=== PATIENT | female | born 1970 | race Caucasian/White ===

== ENCOUNTER 2016-12-30 15:50 | Observation (INO) | payer MEDICARE ==
[2016-12-30] MEDS ORDERED: SODIUM CHLORIDE 0.9% 1,000 ML IV STA (16:14)
--- NOTE | 2016-12-30 16:22 | ED ---
General Adult HPI - General Chief complaint: Arrhythmia/Palpitations Stated complaint: Palpatations/SOB Time Seen by Provider: 12/30/16 16:00 Source: patient, RN notes reviewed, old records reviewed Mode of arrival: wheelchair Limitations: no limitations - History of Present Illness Initial comments: This is a 46-year-old female ER for evaluation today. Patient's is coming in for chest pain or palpitations. Patient does have history of high blood pressure. Denies history of anxiety. Denies fever cough or congestion, denies any other problems. He states symptoms started yesterday but of increased him in consistent throughout the day. No radiation or shortness of breath. No prior history of similar symptoms, no modifying factors for symptoms at home including taking her pain medications. Patient's over the guitars being valvular chest - Related Data Home Medications Medication Instructions Recorded Confirmed Divalproex [Depakote] 250 mg PO Q12H 05/02/16 12/30/16 Levothyroxine Sodium [Synthroid] 50 mcg PO DAILY 05/02/16 12/30/16 Metoprolol Tartrate [Lopressor] 50 mg PO BID 05/02/16 12/30/16 Omeprazole 20 mg PO BID 05/02/16 12/30/16 Pramipexole [Mirapex] 1 mg PO BID 05/02/16 12/30/16 Torsemide 10 mg PO BID 05/02/16 12/30/16 traMADol HCl [Ultram] 50 mg PO DAILY PRN 08/05/16 12/30/16 Albuterol Sulfate [Proair 2 puff INHALATION RT-Q4H PRN 10/10/16 12/30/16 Respiclick] traZODone HCL [Desyrel] 150 mg PO HS 10/10/16 12/30/16 Albuterol Nebulized [Ventolin 2.5 mg INHALATION RT-Q6H PRN 12/30/16 12/30/16 Nebulized] Aspirin EC [Ecotrin Low Dose] 81 mg PO DAILY 12/30/16 12/30/16 Cyanocobalamin (Vitamin B-12) 3,000 mcg PO DAILY 12/30/16 12/30/16 [Vitamin B-12] Etodolac [Lodine] 400 mg PO BID 12/30/16 12/30/16 FLUoxetine HCL [PROzac] 40 mg PO DAILY 12/30/16 12/30/16 Gabapentin [Neurontin] 1,200 mg PO TID 12/30/16 12/30/16 Solifenacin Succinate [Vesicare] 5 mg PO DAILY 12/30/16 12/30/16 Allergies Allergy/AdvReac Type Severity Reaction Status Date / Time Penicillins Allergy Swelling Verified 10/10/16 18:14 adhesive tape AdvReac Severe Peels Skin Verified 10/10/16 18:14 prochlorperazine AdvReac Agitation Verified 10/10/16 18:14 [From Compazine] prochlorperazine edisylate AdvReac Agitation Verified 10/10/16 18:14 [From Compazine] prochlorperazine maleate AdvReac Agitation Verified 10/10/16 18:14 [From Compazine] Review of Systems ROS Statement: Those systems with pertinent positive or pertinent negative responses have been documented in the HPI. ROS Other: All systems not noted in ROS Statement are negative. Past Medical History Past Medical History: Asthma, Fibromyalgia, GERD/Reflux, Hypertension, Thyroid Disorder Additional Past Medical History / Comment(s): back pain, DDD, restless leg, migraines morbid obesity History of Any Multi-Drug Resistant Organisms: C-DIFF Date of last positivie culture/infection: 2008/C-diff MDRO Source:: stool Past Surgical History: Appendectomy, Bariatric Surgery, Cholecystectomy, Hysterectomy, Tonsillectomy Additional Past Surgical History / Comment(s): LAP-BAND surgery in 2008 with loss of 60 pounds and gained 50 pounds back. Past Psychological History: Anxiety, Depression Smoking Status: Never smoker Past Alcohol Use History: None Reported Additional Past Alcohol Use History / Comment(s): Patient is a lifelong nonsmoker. She denies any medical marijuana, marijuana, street drug use. She states she drinks alcohol rarely. She is on disability due to pseudotumor cerebri and fibromyalgia. She states she uses a cane but also has a walker available. She does not have a CPAP, oxygen or nebulizer. Past Drug Use History: None Reported - Past Family History Mother Additional Family Medical History / Comment(s): Mother is alive at age 66 with history of myocardial infarction 2, hypertension, hyperlipidemia, degenerative disc disease, Arlene's, anxiety and depression. Mother and maternal grandmother have history of TIA. Father Additional Family Medical History / Comment(s): Father is alive at age 69 with history of degenerative disc disease, fibromyalgia, hypertension, anxiety and depression. Brother(s) Additional Family Medical History / Comment(s): Patient has 4 brothers and one has fibromyalgia. Sister(s) Additional Family Medical History / Comment(s): Patient has 2 sisters with fibromyalgia. Patient does not have any children. General Exam Limitations: no limitations General appearance: alert, anxious Head exam: Present: atraumatic, normocephalic, normal inspection Eye exam: Present: normal appearance, PERRL, EOMI. Absent: scleral icterus, conjunctival injection, periorbital swelling ENT exam: Present: normal exam, mucous membranes moist Neck exam: Present: normal inspection. Absent: tenderness, meningismus, lymphadenopathy Respiratory exam: Present: normal lung sounds bilaterally. Absent: respiratory distress, wheezes, rales, rhonchi, stridor Cardiovascular Exam: Present: normal rhythm, tachycardia, normal heart sounds. Absent: systolic murmur, diastolic murmur, rubs, gallop, clicks GI/Abdominal exam: Present: soft, normal bowel sounds. Absent: distended, tenderness, guarding, rebound, rigid Extremities exam: Present: normal inspection, full ROM, normal capillary refill. Absent: tenderness, pedal edema, joint swelling, calf tenderness Back exam: Present: normal inspection Neurological exam: Present: alert, oriented X3, CN II-XII intact Psychiatric exam: Present: normal affect, normal mood Skin exam: Present: warm, dry, intact, normal color. Absent: rash Course Vital Signs 12/30/16 12/30/16 16:01 17:28 Temperature 96.8 F L Pulse Rate 109 H 87 Respiratory 18 20 Rate Blood Pressure 171/83 187/74 O2 Sat by Pulse 97 98 Oximetry - Reevaluation(s) Reevaluation #1: 12/30/16 17:57 Patient remains a palpitations and chest pain EKG Findings - EKG Comments: EKG Findings:: EKG shows normal sinus or mastoid, [place] 150, QRS 90, QTC 449 Medical Decision Making - Medical Decision Making 46 female here for evaluation of chest pain. At this point patient's EKG is negative x-ray is normal. Troponin is negative. Patient be admitted for cardiac observation serial troponins anticoagulation and cardiac evaluation, telemetry - Lab Data Result diagrams: 12/30/16 16:49 12/30/16 16:49 Lab Results 12/30/16 12/30/16 12/30/16 Range/Units 16:49 16:49 16:49 WBC 10.0 (3.8-10.6) k/uL RBC 4.23 (3.80-5.40) m/uL Hgb 11.6 (11.4-16.0) gm/dL Hct 36.8 (34.0-46.0) % MCV 87.0 (80.0-100.0) fL MCH 27.5 (25.0-35.0) pg MCHC 31.6 (31.0-37.0) g/dL RDW 14.0 (11.5-15.5) % Plt Count 224 (150-450) k/uL Neutrophils % 70 % Lymphocytes % 20 % Monocytes % 6 % Eosinophils % 2 % Basophils % 1 % Neutrophils # 7.1 (1.3-7.7) k/uL Lymphocytes # 2.0 (1.0-4.8) k/uL Monocytes # 0.6 (0-1.0) k/uL Eosinophils # 0.2 (0-0.7) k/uL Basophils # 0.1 (0-0.2) k/uL PT (9.0-12.0) sec INR (<1.1) APTT (22.0-30.0) sec Sodium 140 (137-145) mmol/L Potassium 4.5 (3.5-5.1) mmol/L Chloride 101 (98-107) mmol/L Carbon Dioxide 29 (22-30) mmol/L Anion Gap 10 mmol/L BUN 15 (7-17) mg/dL Creatinine 0.58 (0.52-1.04) mg/dL Est GFR (MDRD) Af Amer >60 (>60 ml/min/1.73 sqM) Est GFR (MDRD) Non-Af >60 (>60 ml/min/1.73 sqM) Glucose 81 (74-99) mg/dL Calcium 9.3 (8.4-10.2) mg/dL Phosphorus 3.7 (2.5-4.5) mg/dL Magnesium 2.0 (1.6-2.3) mg/dL Total Bilirubin 1.1 (0.2-1.3) mg/dL AST 25 (14-36) U/L ALT 17 (9-52) U/L Alkaline Phosphatase 106 (38-126) U/L Total Creatine Kinase 36 (30-135) U/L CK-MB (CK-2) <0.2 (0.0-2.4) ng/mL CK-MB (CK-2) Rel Index Troponin I <0.012 (0.000-0.034) ng/mL Total Protein 7.2 (6.3-8.2) g/dL Albumin 3.6 (3.5-5.0) g/dL 12/30/16 Range/Units 16:49 WBC (3.8-10.6) k/uL RBC (3.80-5.40) m/uL Hgb (11.4-16.0) gm/dL Hct (34.0-46.0) % MCV (80.0-100.0) fL MCH (25.0-35.0) pg MCHC (31.0-37.0) g/dL RDW (11.5-15.5) % Plt Count (150-450) k/uL Neutrophils % % Lymphocytes % % Monocytes % % Eosinophils % % Basophils % % Neutrophils # (1.3-7.7) k/uL Lymphocytes # (1.0-4.8) k/uL Monocytes # (0-1.0) k/uL Eosinophils # (0-0.7) k/uL Basophils # (0-0.2) k/uL PT 10.9 (9.0-12.0) sec INR 1.1 (<1.1) APTT 26.4 (22.0-30.0) sec Sodium (137-145) mmol/L Potassium (3.5-5.1) mmol/L Chloride (98-107) mmol/L Carbon Dioxide (22-30) mmol/L Anion Gap mmol/L BUN (7-17) mg/dL Creatinine (0.52-1.04) mg/dL Est GFR (MDRD) Af Amer (>60 ml/min/1.73 sqM) Est GFR (MDRD) Non-Af (>60 ml/min/1.73 sqM) Glucose (74-99) mg/dL Calcium (8.4-10.2) mg/dL Phosphorus (2.5-4.5) mg/dL Magnesium (1.6-2.3) mg/dL Total Bilirubin (0.2-1.3) mg/dL AST (14-36) U/L ALT (9-52) U/L Alkaline Phosphatase (38-126) U/L Total Creatine Kinase (30-135) U/L CK-MB (CK-2) (0.0-2.4) ng/mL CK-MB (CK-2) Rel Index Troponin I (0.000-0.034) ng/mL Total Protein (6.3-8.2) g/dL Albumin (3.5-5.0) g/dL - Radiology Data Radiology results: report reviewed (Chest x-ray is negative for acute disease), image reviewed Critical Care Time Critical Care Time: Yes Total Critical Care Time: 31 Disposition Clinical Impression: Palpitations, Chest pain Disposition: ADMITTED IP TO THIS [facility] Condition: Undetermined Referrals: Demi Suero MD [Primary Care Provider] - 1-2 days
[2016-12-30 17:12] LABS: Basophils # (A) 0.1 k/uL (0-0.2); Basophils % (A) 1 %; CH 27.5; CHCM 31.7; Eosinophils # (A) 0.2 k/uL (0-0.7); Eosinophils % (A) 2 %; HCT 36.8 % (34.0-46.0); HDW 2.36; HGB 11.6 gm/dL (11.4-16.0); Luc # (Auto) 0.18; Luc % (Auto) 2; Lymphocytes % (A) 20 %; MCH 27.5 pg (25.0-35.0); MCHC 31.6 g/dL (31.0-37.0); Mean Platelet Volume 8.5; Monocytes # (A) 0.6 k/uL (0-1.0); Monocytes % (A) 6 %; Neutrophils # (A) 7.1 k/uL (1.3-7.7); Neutrophils % (A) 70 %; RBC 4.23 m/uL (3.80-5.40); WBC (Perox) 10.82
[2016-12-30 17:14] LABS: INR 1.1 (<1.1); Partial Thromboplastin Time 26.4 sec (22.0-30.0); Prothrombin Time 10.9 sec (9.0-12.0)
[2016-12-30 17:21] LABS: Creatine Kinase 36 U/L (30-135)
[2016-12-30 17:27] LABS: ALT 17 U/L (9-52); AST 25 U/L (14-36); Alkaline Phosphatase 106 U/L (38-126); Anion Gap 10 mmol/L; Blood Urea Nitrogen 15 mg/dL (7-17); Calcium 9.3 mg/dL (8.4-10.2); Carbon Dioxide 29 mmol/L (22-30); Chloride 101 mmol/L (98-107); Glucose 81 mg/dL (74-99); Non-African American GFR(MDRD) >60 (>60 ml/min/1.73 sqM); Phosphorous 3.7 mg/dL (2.5-4.5); Potassium 4.5 mmol/L (3.5-5.1); Sodium 140 mmol/L (137-145); Total Bilirubin 1.1 mg/dL (0.2-1.3); Total Protein 7.2 g/dL (6.3-8.2)
[2016-12-30 17:33] LABS: Creatine Kinase MB <0.2 ng/mL (0.0-2.4); Troponin I <0.012 ng/mL (0.000-0.034)
[2016-12-30] MEDS ORDERED: HEPARIN SODIUM,PORCINE 5,000 UNIT/ML 1 ML VIAL IV ONE (17:55)
[2016-12-30] MEDS ORDERED: NITROGLYCERIN SL TABS 0.4 MG TAB SUBLINGUAL PRN (17:55)
[2016-12-30] MEDS ORDERED: HEPARIN SODIUM,PORCINE 5,000 UNIT/ML 1 ML VIAL IV PRN (17:55)
[2016-12-30] MEDS ORDERED: ASPIRIN 81 MG CHEW PO STA (17:55)
[2016-12-30] MEDS ORDERED: HEPARIN SODIUM,PORCINE/D5W PMX 25,000 UNIT in DEXTROSE/WATER 1 500ML.BAG IV SCH (18:00)
[2016-12-30] MEDS ORDERED: SODIUM CHLORIDE 0.9% 1,000 ML IV SCH (18:00)
--- NOTE | 2016-12-30 18:15 | XR ---
EXAMINATION TYPE: XR chest 2V DATE OF EXAM: 12/30/2016 4:59 PM COMPARISON: Prior chest x-ray 10 October 2016 HISTORY: Weakness, shortness of breath heart palpitations TECHNIQUE: Frontal and lateral views of the chest are obtained. FINDINGS: No interval change. There are overlying cardiac leads. IMPRESSION: No acute cardiopulmonary process.
[2016-12-30] MEDS ORDERED: ALBUTEROL SULFATE INHALATION PRN (20:25)
[2016-12-30] MEDS: NITROGLYCERIN OINT 1 INCH/GM PACKET TOPICAL SCH ×2 (20:30→23:11)
[2016-12-30] MEDS: PRAMIPEXOLE 1 MG TAB PO SCH (21:13)
[2016-12-30] MEDS: GABAPENTIN 400 MG CAP PO SCH (21:13)
[2016-12-30] MEDS: DIVALPROEX 250 MG TABLET.DR PO SCH (21:13)
[2016-12-30] MEDS: traZODone HCL 50 MG TAB PO SCH (21:13)
[2016-12-30] MEDS: METOPROLOL TARTRATE 50 MG TAB PO SCH (21:13)
[2016-12-30] MEDS: CYANOCOBALAMIN 500 MCG TAB PO SCH (21:13)
[2016-12-30] MEDS: traMADol 50 MG TAB PO PRN (21:14)
[2016-12-30] MEDS: ETODOLAC 400 MG TAB PO SCH (21:14)
[2016-12-30] MEDS: FLUoxetine HCL 20 MG CAP PO SCH (21:14)
[2016-12-30] MEDS: PANTOPRAZOLE 40 MG TABLET PO SCH (21:14)
[2016-12-30] MEDS: LEVOTHYROXINE 50 MCG TAB PO SCH (21:15)
[2016-12-30] MEDS: FUROSEMIDE 20 MG TAB PO SCH (21:15)
[2016-12-30] MEDS: OXYBUTYNIN XL 5 MG TAB.ER.24 PO SCH (22:30)
[2016-12-31 00:34] LABS: Creatine Kinase 29 U/L (30-135)
[2016-12-31 00:47] LABS: Creatine Kinase MB <0.2 ng/mL (0.0-2.4); Troponin I <0.012 ng/mL (0.000-0.034)
[2016-12-31] MEDS: NITROGLYCERIN OINT 1 INCH/GM PACKET TOPICAL SCH ×2 (03:45→18:54)
[2016-12-31] MEDS: traMADol 50 MG TAB PO PRN (03:45)
[2016-12-31 04:50] LABS: Mean Platelet Volume 9.2
[2016-12-31 05:01] LABS: Cholesterol 141 mg/dL (<200); HDL Cholesterol 48 mg/dL (40-60); Triglycerides 69 mg/dL (<150)
[2016-12-31 05:02] LABS: Creatine Kinase 26 U/L (30-135)
[2016-12-31 05:15] LABS: Creatine Kinase MB <0.2 ng/mL (0.0-2.4); Troponin I <0.012 ng/mL (0.000-0.034)
--- NOTE | 2016-12-31 08:34 | P.CRDCN ---
History of Present Illness Consult date: 12/31/16 Chief complaint: chest pain History of present illness: This is a pleasant 46-year-old female patient with a past medical history significant for fibromyalgia as well as hypertension presented to the emergency room complaining of chest discomfort. The patient describes atypical chest discomfort. Also she describes painful palpitations. The EKG showed sinus rhythm without any significant ST or T-wave abnormalities. The cardiac enzymes were checked and came in to be unremarkable. She is not aware of any prior history of coronary artery disease. She does smoke ago. I recommended proceeding with a stress testto rule out any severe underlying CAD. Past Medical History Past Medical History: Asthma, Fibromyalgia, GERD/Reflux, Hypertension, Thyroid Disorder Additional Past Medical History / Comment(s): back pain, DDD, restless leg, migraines morbid obesity, pseudotumor cerebri, bladder incontinence History of Any Multi-Drug Resistant Organisms: C-DIFF Date of last positivie culture/infection: 2008/C-diff MDRO Source:: stool Past Surgical History: Appendectomy, Bariatric Surgery, Cholecystectomy, Hysterectomy, Tonsillectomy Additional Past Surgical History / Comment(s): LAP-BAND surgery in 2008 with loss of 60 pounds and gained 50 pounds back. Past Psychological History: Anxiety, Depression Smoking Status: Current some day smoker Past Alcohol Use History: None Reported Additional Past Alcohol Use History / Comment(s): Patient is a lifelong nonsmoker. She denies any medical marijuana, marijuana, street drug use. She states she drinks alcohol rarely. She is on disability due to pseudotumor cerebri and fibromyalgia. She states she uses a cane but also has a walker available. She does not have a CPAP, oxygen or nebulizer. Past Drug Use History: None Reported - Past Family History Mother Additional Family Medical History / Comment(s): Mother is alive at age 66 with history of myocardial infarction 2, hypertension, hyperlipidemia, degenerative disc disease, Arlene's, anxiety and depression. Mother and maternal grandmother have history of TIA. Father Additional Family Medical History / Comment(s): Father is alive at age 69 with history of degenerative disc disease, fibromyalgia, hypertension, anxiety and depression. Brother(s) Additional Family Medical History / Comment(s): Patient has 4 brothers and one has fibromyalgia. Sister(s) Additional Family Medical History / Comment(s): Patient has 2 sisters with fibromyalgia. Patient does not have any children. Medications and Allergies Home Medications Medication Instructions Recorded Confirmed Type Divalproex [Depakote] 250 mg PO Q12H 05/02/16 12/30/16 History Levothyroxine Sodium [Synthroid] 50 mcg PO DAILY 05/02/16 12/30/16 History Metoprolol Tartrate [Lopressor] 50 mg PO BID 05/02/16 12/30/16 History Omeprazole 20 mg PO BID 05/02/16 12/30/16 History Pramipexole [Mirapex] 2 mg PO HS 05/02/16 12/30/16 History Torsemide 10 mg PO BID 05/02/16 12/30/16 History traMADol HCl [Ultram] 50 mg PO DAILY PRN 08/05/16 12/30/16 History Albuterol Sulfate [Proair 2 puff INHALATION RT-Q4H PRN 10/10/16 12/30/16 History Respiclick] traZODone HCL [Desyrel] 150 mg PO HS 10/10/16 12/30/16 History Albuterol Nebulized [Ventolin 2.5 mg INHALATION RT-Q6H PRN 12/30/16 12/30/16 History Nebulized] Aspirin EC [Ecotrin Low Dose] 81 mg PO DAILY 12/30/16 12/30/16 History Cyanocobalamin (Vitamin B-12) 3,000 mcg PO DAILY 12/30/16 12/30/16 History [Vitamin B-12] Etodolac [Lodine] 400 mg PO BID 12/30/16 12/30/16 History FLUoxetine HCL [PROzac] 40 mg PO DAILY 12/30/16 12/30/16 History Gabapentin [Neurontin] 1,200 mg PO TID 12/30/16 12/30/16 History Solifenacin Succinate [Vesicare] 5 mg PO BID 12/30/16 12/30/16 History Allergies Allergy/AdvReac Type Severity Reaction Status Date / Time Penicillins Allergy Swelling Verified 10/10/16 18:14 adhesive tape AdvReac Severe Peels Skin Verified 10/10/16 18:14 prochlorperazine AdvReac Agitation Verified 10/10/16 18:14 [From Compazine] prochlorperazine edisylate AdvReac Agitation Verified 10/10/16 18:14 [From Compazine] prochlorperazine maleate AdvReac Agitation Verified 10/10/16 18:14 [From Compazine] Physical Exam Vitals: Vital Signs Temp Pulse Pulse Resp BP BP Pulse Ox 12/31/16 08:00 97.8 F 70 16 93/50 93 L 12/31/16 04:00 98.2 F 68 18 113/63 93 L 12/31/16 00:00 18 12/30/16 22:55 69 18 124/65 91 L 12/30/16 20:08 16 12/30/16 19:06 97.6 F 73 16 141/82 96 12/30/16 18:08 98.4 F 88 20 170/80 98 Intake and Output 12/30/16 12/31/16 12/31/16 22:59 06:59 14:59 Intake Total 270 1029.333 Balance 270 1029.333 Intake: IV 120 640 Heparin Sodium,Porcine/ 20 240 D5w Pmx 25,000 unit In Dextrose/Water 1 500ml. bag @ 6.5 UNITS/KG/HR 20. 04 mls/hr IV .Q24H JACKLYN Rx #:[id number] Sodium Chloride 0.9% 1, 100 400 000 ml @ 100 mls/hr IV . Q10H JACKLYN Rx#:[id number] Intake, IV Titration 139.333 Amount Heparin Sodium,Porcine/ 139.333 D5w Pmx 25,000 unit In Dextrose/Water 1 500ml. bag @ 6.5 UNITS/KG/HR 20. 04 mls/hr IV .Q24H JACKLYN Rx #:[id number] Oral 150 250 Other: Voiding Method Toilet Toilet Diaper Diaper Incontinent Incontinent # Voids 2 3 Weight 159.1 kg - Constitutional General appearance: no acute distress - Respiratory Respiratory: bilateral: CTA - Cardiovascular Rhythm: regular Heart sounds: normal: S1, S2 Results 12/31/16 04:00 12/30/16 16:49 Cardiac Enzymes 12/30/16 12/31/16 Range/Units 23:33 04:00 CK-MB (CK-2) <0.2 <0.2 (0.0-2.4) ng/mL Troponin I <0.012 <0.012 (0.000-0.034) ng/mL Coagulation 12/30/16 Range/Units 23:33 APTT 28.6 (22.0-30.0) sec Lipids 12/31/16 Range/Units 04:00 Triglycerides 69 (<150) mg/dL Cholesterol 141 (<200) mg/dL HDL Cholesterol 48 (40-60) mg/dL CBC 12/31/16 Range/Units 04:00 Plt Count 205 (150-450) k/uL Current Medications Generic Name Dose Route Start Last Admin Trade Name Freq PRN Reason Stop Dose Admin Albuterol Sulfate 2.5 mg 12/30/16 20:25 Ventolin Nebulized INHALATION RT-Q6H PRN Shortness Of Breath Aspirin 325 mg 12/31/16 09:00 Aspirin PO DAILY JACKLYN Cyanocobalamin 3,000 mcg 12/30/16 20:30 12/30/16 21:13 Vitamin B-12 PO 3,000 mcg DAILY JACKLYN Administration Divalproex Sodium 250 mg 12/30/16 20:30 12/30/16 21:13 Depakote PO 250 mg Q12H JACKLYN Administration Etodolac 400 mg 12/30/16 21:00 12/30/16 21:14 Lodine PO 400 mg BID JACKLYN Administration Fluoxetine HCl 40 mg 12/30/16 20:30 12/30/16 21:14 Prozac PO 40 mg DAILY JACKLYN Administration Furosemide 20 mg 12/30/16 21:00 12/30/16 21:15 Lasix PO 20 mg BID JACKLYN Administration Gabapentin 1,200 mg 12/30/16 22:00 12/30/16 21:13 Neurontin PO 1,200 mg TID JACKLYN Administration Heparin Sodium (Porcine) 0 unit 12/30/16 17:55 12/31/16 01:01 Heparin IV 4,000 unit Q6HR PRN Administration Low PTT Protocol Heparin Sodium/Dextrose 25,000 500 mls @ 20.04 mls/hr 12/30/16 18:00 01:01 unit/ IV Solution IV 9.48 units/kg/hr .Q24H JACKLYN 29.24 mls/hr Protocol Titration 6.5 UNITS/KG/HR Sodium Chloride 1,000 mls @ 100 mls/hr 12/30/16 18:00 12/30/16 20:33 Saline 0.9% IV 100 mls/hr .Q10H JACKLYN Administration Levothyroxine Sodium 50 mcg 12/30/16 20:30 12/30/16 21:15 Synthroid PO 50 mcg DAILY JACKLYN Administration Metoprolol Tartrate 50 mg 12/30/16 21:00 12/30/16 21:13 Lopressor PO 50 mg BID JACKLYN Administration Nitroglycerin 0.4 mg 12/30/16 17:55 Nitrostat SUBLINGUAL Q5M PRN Chest Pain Nitroglycerin 1 inch 12/30/16 19:15 12/31/16 03:45 Nitro-Bid Oint TOPICAL 1 inch Q6HR JACKLYN Administration Oxybutynin Chloride 5 mg 12/30/16 21:22 12/30/16 22:30 Ditropan Xl PO 5 mg DAILY JACKLYN Administration Pantoprazole Sodium 40 mg 12/30/16 21:00 12/30/16 21:14 Protonix PO 40 mg BID JACKLYN Administration Pramipexole Dihydrochloride 2 mg 12/30/16 21:00 12/30/16 21:13 Mirapex PO 2 mg HS [facility] Administration Tramadol HCl 50 mg 12/30/16 20:25 12/31/16 03:45 Ultram PO 50 mg DAILY PRN Administration Pain Trazodone HCl 150 mg 12/30/16 21:00 12/30/16 21:13 Desyrel PO 150 mg HS [facility] Administration Intake and Output 12/30/16 12/31/16 12/31/16 22:59 06:59 14:59 Intake Total 270 1029.333 Balance 270 1029.333 Intake: IV 120 640 Heparin Sodium,Porcine/ 20 240 D5w Pmx 25,000 unit In Dextrose/Water 1 500ml. bag @ 6.5 UNITS/KG/HR 20. 04 mls/hr IV .Q24H JACKLYN Rx #:[id number] Sodium Chloride 0.9% 1, 100 400 000 ml @ 100 mls/hr IV . Q10H JACKLYN Rx#:[id number] Intake, IV Titration 139.333 Amount Heparin Sodium,Porcine/ 139.333 D5w Pmx 25,000 unit In Dextrose/Water 1 500ml. bag @ 6.5 UNITS/KG/HR 20. 04 mls/hr IV .Q24H JACKLYN Rx #:[id number] Oral 150 250 Other: Voiding Method Toilet Toilet Diaper Diaper Incontinent Incontinent # Voids 2 3 Weight 159.1 kg 12/31/16 04:00 Assessment and Plan Plan: assessment #1 atypical chest discomfort #2 history of smoking #3 fibroplasia Plan #1 proceeding with a stress test tomorrow #2 she just underwent an echocardiogram recently came in to be unremarkable #3 follow-up with the patient
[2016-12-31] MEDS ORDERED: OXYBUTYNIN XL 5 MG TAB.ER.24 PO SCH (09:00)
[2016-12-31] MEDS ORDERED: NON-FORMULARY DRUG (Aspirin Ec 81 MG) PO SCH (09:00)
[2016-12-31] MEDS: ETODOLAC 400 MG TAB PO SCH (09:43)
[2016-12-31] MEDS: CYANOCOBALAMIN 500 MCG TAB PO SCH (09:43)
[2016-12-31] MEDS: GABAPENTIN 400 MG CAP PO SCH ×3 (09:44→20:27)
[2016-12-31] MEDS: DIVALPROEX 250 MG TABLET.DR PO SCH ×2 (09:44→20:27)
[2016-12-31] MEDS: FLUoxetine HCL 20 MG CAP PO SCH (09:44)
[2016-12-31] MEDS: ACETAMINOPHEN TAB 325 MG TAB PO PRN (09:44)
[2016-12-31] MEDS: LEVOTHYROXINE 50 MCG TAB PO SCH (09:45)
[2016-12-31] MEDS: OXYBUTYNIN XL 5 MG TAB.ER.24 PO SCH (09:45)
[2016-12-31] MEDS: FUROSEMIDE 20 MG TAB PO SCH (09:45)
[2016-12-31] MEDS: PANTOPRAZOLE 40 MG TABLET PO SCH ×2 (09:45→20:28)
[2016-12-31] MEDS: METOPROLOL TARTRATE 50 MG TAB PO SCH ×2 (09:45→20:28)
[2016-12-31] MEDS ORDERED: MORPHINE SULFATE 2 MG/ML SYRINGE IVP PRN (11:08)
[2016-12-31] MEDS: ASPIRIN 325 MG TAB PO SCH (11:12)
[2016-12-31] MEDS: ALBUTEROL NEBULIZED 2.5 MG/3 ML INHALATION PRN (11:33)
[2016-12-31] MEDS: ALPRAZolam 0.5 MG TAB PO PRN ×2 (11:52→20:27)
[2016-12-31] MEDS ORDERED: ONDANSETRON 4 MG/2 ML VIAL IVP PRN (12:51)
--- NOTE | 2016-12-31 13:37 | P.HPIM ---
History of Present Illness H&P Date: 12/31/16 Chief Complaint: Chest pain This is a 46-year-old female with past medical history noted below significant for morbid obesity and chronic pain syndrome/fibromyalgia who presented to the emergency room with worsening chest pain. Patient said that she has been having chest pain intermittently for several weeks. She described it as painful palpitation. She said that her pain is worse with exertion and going upstairs. She denies any significant shortness of breath. No diaphoresis. No radiation. No dizziness or lightheadedness. Patient was evaluated in the emergency room twelve-lead EKG showed no acute ischemic changes. Serial troponin were negative 3 sets. Patient was placed in observation and was seen and evaluated by cardiology. Review of Systems Review of system: 14 points review of systems were obtained and were negative except to what were mentioned in the HPI. Past Medical History Past Medical History: Asthma, Fibromyalgia, GERD/Reflux, Hypertension, Thyroid Disorder Additional Past Medical History / Comment(s): back pain, DDD, restless leg, migraines morbid obesity, pseudotumor cerebri, bladder incontinence History of Any Multi-Drug Resistant Organisms: C-DIFF Date of last positivie culture/infection: 2008/C-diff MDRO Source:: stool Past Surgical History: Appendectomy, Bariatric Surgery, Cholecystectomy, Hysterectomy, Tonsillectomy Additional Past Surgical History / Comment(s): LAP-BAND surgery in 2008 with loss of 60 pounds and gained 50 pounds back. Past Psychological History: Anxiety, Depression Smoking Status: Current some day smoker Past Alcohol Use History: None Reported Additional Past Alcohol Use History / Comment(s): Patient is a lifelong nonsmoker. She denies any medical marijuana, marijuana, street drug use. She states she drinks alcohol rarely. She is on disability due to pseudotumor cerebri and fibromyalgia. She states she uses a cane but also has a walker available. She does not have a CPAP, oxygen or nebulizer. Past Drug Use History: None Reported - Past Family History Mother Additional Family Medical History / Comment(s): Mother is alive at age 66 with history of myocardial infarction 2, hypertension, hyperlipidemia, degenerative disc disease, Arlene's, anxiety and depression. Mother and maternal grandmother have history of TIA. Father Additional Family Medical History / Comment(s): Father is alive at age 69 with history of degenerative disc disease, fibromyalgia, hypertension, anxiety and depression. Brother(s) Additional Family Medical History / Comment(s): Patient has 4 brothers and one has fibromyalgia. Sister(s) Additional Family Medical History / Comment(s): Patient has 2 sisters with fibromyalgia. Patient does not have any children. Medications and Allergies Home Medications Medication Instructions Recorded Confirmed Type Divalproex [Depakote] 250 mg PO Q12H 05/02/16 12/30/16 History Levothyroxine Sodium [Synthroid] 50 mcg PO DAILY 05/02/16 12/30/16 History Metoprolol Tartrate [Lopressor] 50 mg PO BID 05/02/16 12/30/16 History Omeprazole 20 mg PO BID 05/02/16 12/30/16 History Pramipexole [Mirapex] 2 mg PO HS 05/02/16 12/30/16 History Torsemide 10 mg PO BID 05/02/16 12/30/16 History traMADol HCl [Ultram] 50 mg PO DAILY PRN 08/05/16 12/30/16 History Albuterol Sulfate [Proair 2 puff INHALATION RT-Q4H PRN 10/10/16 12/30/16 History Respiclick] traZODone HCL [Desyrel] 150 mg PO HS 10/10/16 12/30/16 History Albuterol Nebulized [Ventolin 2.5 mg INHALATION RT-Q6H PRN 12/30/16 12/30/16 History Nebulized] Aspirin EC [Ecotrin Low Dose] 81 mg PO DAILY 12/30/16 12/30/16 History Cyanocobalamin (Vitamin B-12) 3,000 mcg PO DAILY 12/30/16 12/30/16 History [Vitamin B-12] Etodolac [Lodine] 400 mg PO BID 12/30/16 12/30/16 History FLUoxetine HCL [PROzac] 40 mg PO DAILY 12/30/16 12/30/16 History Gabapentin [Neurontin] 1,200 mg PO TID 12/30/16 12/30/16 History Solifenacin Succinate [Vesicare] 5 mg PO BID 12/30/16 12/30/16 History Allergies Allergy/AdvReac Type Severity Reaction Status Date / Time Penicillins Allergy Swelling Verified 12/27/16 18:14 adhesive tape AdvReac Severe Peels Skin Verified 10/10/16 18:14 prochlorperazine AdvReac Agitation Verified 10/10/16 18:14 [From Compazine] prochlorperazine edisylate AdvReac Agitation Verified 10/10/16 18:14 [From Compazine] prochlorperazine maleate AdvReac Agitation Verified 10/10/16 18:14 [From Compazine] Physical Exam Vitals: Vital Signs Temp Pulse Pulse Resp BP BP Pulse Ox 12/31/16 12:00 98.1 F 66 16 109/62 95 12/31/16 11:40 66 12/31/16 11:34 62 12/31/16 08:00 97.8 F 70 16 93/50 93 L 12/31/16 04:00 98.2 F 68 18 113/63 93 L 12/31/16 00:00 18 12/30/16 22:55 69 18 124/65 91 L 12/30/16 20:08 16 12/30/16 19:06 97.6 F 73 16 141/82 96 12/30/16 18:08 98.4 F 88 20 170/80 98 Intake and Output 12/30/16 12/31/16 12/31/16 22:59 06:59 14:59 Intake Total 270 1029.333 2 Balance 270 1029.333 2 Intake: IV 120 640 Heparin Sodium,Porcine/ 20 240 D5w Pmx 25,000 unit In Dextrose/Water 1 500ml. bag @ 6.5 UNITS/KG/HR 20. 04 mls/hr IV .Q24H [facility] Rx #:[id number] Sodium Chloride 0.9% 1, 100 400 000 ml @ 100 mls/hr IV . Q10H [facility] Rx#:[id number] Intake, IV Titration 139.333 Amount Heparin Sodium,Porcine/ 139.333 D5w Pmx 25,000 unit In Dextrose/Water 1 500ml. bag @ 6.5 UNITS/KG/HR 20. 04 mls/hr IV .Q24H [facility] Rx #:[id number] Oral 150 250 Lipid 2 Sodium Chloride 0.9% 1, 2 000 ml @ 100 mls/hr IV . Q10H [facility] Rx#:[id number] Other: Voiding Method Toilet Toilet Toilet Diaper Diaper Diaper Incontinent Incontinent Incontinent # Voids 2 3 Weight 159.1 kg General: The patient is awake and alert, in no distress, she is morbidly obese Eye: extra-ocular movements are intact; there is normal conjunctiva bilaterally. . Cardiovascular: Normal S1-S2, no S3-S4, no murmurs. Respiratory: Lungs clear to auscultation bilaterally with no wheezes rhonchi or rales. Gastrointestinal: Abdomen is soft, nontender Musculoskeletal: Normal ROM, no tenderness, There is evidence of lymphedema and stovepipe legs Neurological: There are no obvious motor or sensory deficits. Speech is normal. Skin: Skin is warm and dry Results CBC & Chem 7: 12/31/16 04:00 12/30/16 16:49 Labs: Abnormal Lab Results - Last 24 Hours (Table) 12/30/16 12/31/16 Range/Units 23:33 04:00 Total Creatine Kinase 29 L 26 L (30-135) U/L Thrombosis Risk Factor Assmnt - Choose All That Apply Any of the Below Risk Factors Present?: Yes Each Factor Represents 1 point: Obesity (BMI >25) Other Risk Factors: No Thrombosis Risk Factor Assessment Total Risk Factor Score: 1 Thrombosis Risk Factor Assessment Level: Low Risk Assessment and Plan Plan: 1. Chest pain, with typical and atypical features. 12 leads EKG showed no acute ischemic changes. Serial troponin negative 3 sets. Patient was seen and evaluated by cardiology. Plan for stress test in the morning. 2. Essential hypertension: Blood pressure well-controlled 3. Morbid obesity: Counseled regarding lifestyle modification and exercise. Patient had the lap band in the past and scheduled to see his surgery in the near future for possible band removal and sleeve gastrectomy 4. Chronic pain syndrome/fibromyalgia
[2016-12-31] MEDS: KETOROLAC 30 MG/ML 1 ML VIAL IVP PRN ×2 (15:33→20:25)
[2016-12-31] MEDS: traZODone HCL 50 MG TAB PO SCH (20:27)
[2016-12-31] MEDS: PRAMIPEXOLE 1 MG TAB PO SCH (20:27)
[2017-01-01] MEDS: NITROGLYCERIN OINT 1 INCH/GM PACKET TOPICAL SCH ×4 (03:33→16:34)
[2017-01-01] MEDS ORDERED: DOBUTamine DRIP for NUC MED 500 MG in DEXTROSE/WATER 1 250ML.BAG IV ONE (05:00)
[2017-01-01] MEDS: KETOROLAC 30 MG/ML 1 ML VIAL IVP PRN ×2 (06:45→14:29)
[2017-01-01] MEDS: ALPRAZolam 0.5 MG TAB PO PRN (06:45)
[2017-01-01] MEDS: ALBUTEROL NEBULIZED 2.5 MG/3 ML INHALATION PRN ×2 (07:40→14:06)
[2017-01-01 08:15] LABS: Anion Gap 9 mmol/L; Blood Urea Nitrogen 19 mg/dL (7-17); Calcium 8.9 mg/dL (8.4-10.2); Carbon Dioxide 28 mmol/L (22-30); Chloride 102 mmol/L (98-107); Glucose 85 mg/dL (74-99); Non-African American GFR(MDRD) >60 (>60 ml/min/1.73 sqM); Potassium 4.3 mmol/L (3.5-5.1); Sodium 139 mmol/L (137-145)
[2017-01-01 08:16] LABS: Basophils # (A) 0.1 k/uL (0-0.2); Basophils % (A) 1 %; CH 27.5; Eosinophils # (A) 0.2 k/uL (0-0.7); Eosinophils % (A) 3 %; HCT 33.5 % (34.0-46.0); HGB 10.6 gm/dL (11.4-16.0); Hypochromasia Slight; Luc # (Auto) 0.16; Luc % (Auto) 2; Lymphocytes # (A) 1.9 k/uL (1.0-4.8); Lymphocytes % (A) 26 %; MCH 28.2 pg (25.0-35.0); MCHC 31.7 g/dL (31.0-37.0); MCV 89.2 fL (80.0-100.0); Mean Platelet Volume 7.9; Monocytes # (A) 0.5 k/uL (0-1.0); Monocytes % (A) 6 %; Neutrophils # (A) 4.6 k/uL (1.3-7.7); Neutrophils % (A) 62 %; RBC 3.76 m/uL (3.80-5.40); RDW 14.1 % (11.5-15.5); WBC 7.4 k/uL (3.8-10.6); WBC (Perox) 8.19
--- NOTE | 2017-01-01 09:38 | PN ---
Kamila is a 46-year-old lady with morbid obesity who is admitted to hospital with chest pain and ruled out for myocardial infarction. She has been scheduled for a stress test by Dr. Coburn, who saw her yesterday. This morning, patient is pain free and doing well, hemodynamically stable. Rest of her examination is unchanged. She will go for stress test. I will follow the stress test results and decide on further course of action.
[2017-01-01] MEDS ORDERED: METOCLOPRAMIDE 5 MG/ML 2 ML VIAL ONE (10:03)
[2017-01-01] MEDS ORDERED: ATROPINE SULFATE 0.1 MG/ML 10ML SYRINGE ONE (10:03)
[2017-01-01] MEDS: LEVOTHYROXINE 50 MCG TAB PO SCH (10:27)
[2017-01-01] MEDS: OXYBUTYNIN XL 5 MG TAB.ER.24 PO SCH (10:27)
[2017-01-01] MEDS: CYANOCOBALAMIN 500 MCG TAB PO SCH (10:27)
[2017-01-01] MEDS: GABAPENTIN 400 MG CAP PO SCH ×2 (10:27→16:34)
[2017-01-01] MEDS: DIVALPROEX 250 MG TABLET.DR PO SCH (10:28)
[2017-01-01] MEDS: PANTOPRAZOLE 40 MG TABLET PO SCH (10:28)
[2017-01-01] MEDS: FLUoxetine HCL 20 MG CAP PO SCH (10:28)
[2017-01-01] MEDS: METOPROLOL TARTRATE 50 MG TAB PO SCH (10:28)
[2017-01-01] MEDS: ASPIRIN 325 MG TAB PO SCH (10:29)
[2017-01-01] MEDS: ACETAMINOPHEN TAB 325 MG TAB PO PRN (10:34)
--- NOTE | 2017-01-01 13:30 | P.PN ---
Subjective patient presented with chest pain. She is scheduled for stress test today. Patient does report that she had increase in her anxiety and that may be contributing to the chest pain. She has a nausea or vomiting. Denies any bowel movement changes or urinary symptoms. Objective - Vital Signs Vital signs: Vital Signs Temp 97.6 F 01/01/17 12:00 Pulse 85 01/01/17 12:00 Resp 18 01/01/17 12:00 BP 106/57 01/01/17 12:00 Pulse Ox 93 L 01/01/17 12:00 Intake & Output 12/31/16 01/01/17 01/01/17 18:59 06:59 18:59 Intake Total 2 Balance 2 Intake: Lipid 2 Sodium Chloride 0.9% 1, 2 000 ml @ 100 mls/hr IV . Q10H [facility] Rx#:[id number] Other: Voiding Method Toilet Toilet Toilet Diaper Diaper Diaper Incontinent Incontinent Incontinent # Voids 1 1 - Exam Head normocephalic Neck supple Lungs clear to auscultation bilaterally no wheezing or crackles Heart regular rate and rhythm S1-S2, no rub or gallop Abdomen is soft nontender nondistended positive bowel sounds no hepatosplenomegaly Extremities no edema Neuro alert and orientated to 3 - Labs CBC & Chem 7: 01/01/17 07:10 01/01/17 07:10 Labs: Abnormal Lab Results - Last 24 Hours (Table) 01/01/17 01/01/17 Range/Units 07:10 07:10 RBC 3.76 L (3.80-5.40) m/uL Hgb 10.6 L (11.4-16.0) gm/dL Hct 33.5 L (34.0-46.0) % BUN 19 H (7-17) mg/dL Assessment and Plan Plan: 1. Chest pain, with typical and atypical features. 12 leads EKG showed no acute ischemic changes. Serial troponin negative 3 sets. Patient was seen and evaluated by cardiology. patient scheduled for stress test today 2. Essential hypertension: Blood pressure well-controlled 3. Morbid obesity: Counseled regarding lifestyle modification and exercise. Patient had the lap band in the past and scheduled to see his surgery in the near future for possible band removal and sleeve gastrectomy 4. Chronic pain syndrome/fibromyalgia 5. Generalized anxiety disorder: Continue with the Prozac. Xanax as needed. Awaiting stress test results.
[2017-01-01 14:16] VITALS: PULSE 68
--- NOTE | 2017-01-01 14:16 | ECHOS ---
DATE OF SERVICE: 01/01/17 AGE: 46Y SEX: F HT: 62" WT: 350lbs. Protocol Ronald: X Others: Stage: 4 Dur. of Exercise: 12:00 *Heart Rate Blood Pressure *Rest: 67 Rest: 148/73 * *Max. Achieved: 139 Maximum BP: 177/100 85% PMHR: 149 100% PMHR: 175 *METS: INDICATIONS: Chest pain. MEDICATIONS: Pretesting physical examination showed heart rate of 67, pressure is 148/73 mmHg. Baseline EKG showed sinus rhythm. Dobutamine infusion at a dose of 10 mcg/kg per minute was initiated and increased to 40 mcg/kg per minute per protocol. We gave the patient 1.5 mg of atropine to enhance the heart rate. With dobutamine and atropine the patient achieved a max heart rate 139, which is about 80% of maximum predicted heart rate. Maximum blood pressure was 177/100 millimeters mercury. Clinically, the patient did not experience any symptoms of chest pain or chest discomfort during the testing or in the recovery time. The EKG did not show any significant ST or T wave abnormalities consistent with ischemia. Echocardiogram images: On echocardiogram from parasternal long axis view, parasternal short axis view, apical 4 chamber view, and apical 2 chamber view were obtained at baseline images, at low-dose dobutamine infusion, at the peak of the heart rate, as well as on recovery and the echocardiogram images showed good augmentation in the left ventricular systolic function without evidence of wall motion abnormalities consistent with ischemia. CONCLUSION: 1. Normal EKG in response to dobutamine. 2. Normal echocardiogram in response to dobutamine. 3. Essentially normal dobutamine stress echocardiogram for the patient.
[2017-01-01] MEDS ORDERED: LORazepam 0.5 MG TAB PO SCH (15:30)
--- NOTE | 2017-01-01 15:50 | P.DS ---
Providers Date of admission: 12/30/16 17:55 Expected date of discharge: 01/01/17 Attending physician: Jessica Hernandez Consults: Dr. Gerber Primary care physician: Demi Suero Hospital Course: Discharge diagnosis 1. Chest pain, with typical and atypical features. [place] ruled out. Chest pain possibly related to her anxiety and some mild costochondritis. Recommend Tylenol as needed. 12 leads EKG showed no acute ischemic changes. Serial troponin negative 3 sets. Patient was seen and evaluated by cardiology. Stress test was negative 2. Essential hypertension: Blood pressure well-controlled 3. Morbid obesity: Counseled regarding lifestyle modification and exercise. Patient had the lap band in the past and scheduled to see his surgery in the near future for possible band removal and sleeve gastrectomy 4. Chronic pain syndrome/fibromyalgia 5. Generalized anxiety disorder: Continue with the Prozac. We'll restart patient's Ativan 0.5 mg 3 times a day as needed. And will have her follow-up with her PCP 6. Anemia possible acute blood loss anemia versus dilutional from IV fluids. Recommend checking CBC on Sunday. Hemoglobin at discharge is 10.6. Patient reports no acute bleeding. Does report one change in stool about a week ago that was black. Recommend follow-up with blood work and evaluate if patient is in need of another colonoscopy or EGD as outpatient. Also will discontinue her Lodine for now until she is evaluated by her PCP Hospital course This is a 46-year-old female who presented with chest pain. Cardiac enzymes were negative 3 sets. EKG showing normal sinus rhythm with no acute ischemic changes. Patient underwent a dobutamine stress echo which was normal. Patient is still having some chest discomfort. Likely related to her anxiety. Patient reports that since being off of her Ativan she has noticed more of this chest discomfort and she's been more anxious. Also reports that she started a new workout she does have some evidence of costochondritis. Recommend Tylenol as needed for pain. Also will give patient states 5 day prescription of Ativan. We'll her follow-up with her PCP, Dr. Suero for further evaluation of her anxiety. Her anemia she has no active bleeding. However she does report a one change in stool last week. She also reports a colonoscopy about 5 years ago. She was told that she was supposed to have another one every 5 years. Recommend the patient has colonoscopy and/ or EGD scheduled as outpatient. Also monitor CBC. Will have a routine CBC checked on Sunday in the office with her PCP. Also will discontinue the Lodine. Patient is medically stable for discharge once she is cleared by cardiology. Nursing staff is paging cardiology now for discharge orders. Patient Condition at Discharge: Stable Plan - Discharge Summary New Discharge Prescriptions: LORazepam [Ativan] 0.5 mg PO TID PRN #15 tab PRN Reason: Anxiety Discharge Medication List Divalproex [Depakote] 250 mg PO Q12H 05/02/16 [History] Levothyroxine Sodium [Synthroid] 50 mcg PO DAILY 05/02/16 [History] Metoprolol Tartrate [Lopressor] 50 mg PO BID 05/02/16 [History] Omeprazole 20 mg PO BID 05/02/16 [History] Pramipexole [Mirapex] 2 mg PO HS 05/02/16 [History] Torsemide 10 mg PO BID 05/02/16 [History] traMADol HCl [Ultram] 50 mg PO DAILY PRN 08/05/16 [History] Albuterol Sulfate [Proair Respiclick] 2 puff INHALATION RT-Q4H PRN 10/10/16 [ History] traZODone HCL [Desyrel] 150 mg PO HS 10/10/16 [History] Albuterol Nebulized [Ventolin Nebulized] 2.5 mg INHALATION RT-Q6H PRN 12/30/16 [ History] Aspirin EC [Ecotrin Low Dose] 81 mg PO DAILY 12/30/16 [History] Cyanocobalamin (Vitamin B-12) [Vitamin B-12] 3,000 mcg PO DAILY 12/30/16 [ History] FLUoxetine HCL [PROzac] 40 mg PO DAILY 12/30/16 [History] Gabapentin [Neurontin] 1,200 mg PO TID 12/30/16 [History] Solifenacin Succinate [Vesicare] 5 mg PO BID 12/30/16 [History] LORazepam [Ativan] 0.5 mg PO TID PRN #15 tab 01/01/17 [Rx] Follow up Appointment(s)/Referral(s): Demi Suero MD [Primary Care Provider] - 1 Week Activity/Diet/Wound Care/Special Instructions: Diet: cardiac Activity: as tolerated Discharge Disposition: HOME SELF-CARE
[2017-01-01 16:27] VITALS: BP 117/59; RESP 16; TEMP 97.1
== END 2017-01-01 16:49 | disposition home or self-care (01) ==
LOC: EC 15:50 → 3OBS 17:55
PROVIDERS: ADMIT Internal Medicine; ATTEND Internal Medicine
DX: R07.89 Other chest pain (principal); I10 Essential (primary) hypertension; M79.7 Fibromyalgia; F41.1 Generalized anxiety disorder; E07.9 Disorder of thyroid, unspecified; K21.9 Gastro-esophageal reflux disease without esophagitis; G43.909 Migraine, unspecified, not intractable, without status migrainosus; J45.909 Unspecified asthma, uncomplicated; G93.2 Benign intracranial hypertension; F32.9 Major depressive disorder, single episode, unspecified; E66.01 Morbid (severe) obesity due to excess calories; G25.81 Restless legs syndrome; M54.9 Dorsalgia, unspecified; Z68.44 Body mass index [BMI] 60.0-69.9, adult; D64.9 Anemia, unspecified; G89.4 Chronic pain syndrome; M94.0 Chondrocostal junction syndrome [Tietze]; F17.200 Nicotine dependence, unspecified, uncomplicated; R32 Unspecified urinary incontinence; Z79.899 Other long term (current) drug therapy; Z98.84 Bariatric surgery status; Z79.1 Long term (current) use of non-steroidal anti-inflammatories (NSAID); Z79.82 Long term (current) use of aspirin; Z82.49 Family history of ischemic heart disease and other diseases of the circulatory system; Z88.0 Allergy status to penicillin; Z88.8 Allergy status to other drugs, medicaments and biological substances; Z91.048 Other nonmedicinal substance allergy status
CPT/HCPCS: 36415; 94640 ×3; 94760; 93005; 93017; 93350; 80061; 80053; 80048; 82550 ×2; 82553 ×2; 83735; 84100; 84484 ×2; 85025 ×2; 85049; 85610; 85730; 71020; 99291; 96365; 96376; 96361; G0378 ×3; J1250; J1644 ×3; J2765; J0461; J1885 ×2; J2270; 96366; 96375

== ENCOUNTER 2017-01-03 15:34 | Observation (INO) | payer MEDICARE ==
[2017-01-03] MEDS ORDERED: PANTOPRAZOLE 40 MG/10 ML VIAL IVP STA (17:40)
[2017-01-03] MEDS ORDERED: SODIUM CHLORIDE 0.9% 1,000 ML IV STA (17:40)
[2017-01-03] MEDS ORDERED: RX INFO: IV CONTRAST WAS GIVEN 1 EACH MISC MISCELLANE PRN (17:52)
--- NOTE | 2017-01-03 17:53 | ED ---
General Adult HPI - General Source: patient, RN notes reviewed Mode of arrival: wheelchair Limitations: no limitations <Abdiaziz Delaney - Last Filed: 01/03/17 20:03> <Holland Murphy - Last Filed: 01/03/17 20:11> - General Chief complaint: GI Bleed Stated complaint: blood in stool Time Seen by Provider: 01/03/17 17:33 - History of Present Illness Initial comments: Patient is a 46-year-old female who presents emergency room today with a chief complaint of abdominal pain. Patient does admit that earlier today she's been having discomfort to the left-sided abdominal wall. Patient admits that she was recently seen admitted and just discharged from the hospital for chest pain. She states that she had a bowel movement earlier that was loose to soft and noticed some bright red blood in the toilet. Patient does admit that she's had some lightheadedness dizziness over the last few weeks. She denies any other complaints or symptoms. Patient denies any recent fever, chills, shortness of breath, chest pain, back pain, numbness or tingling, dysuria or hematuria, constipation or diarrhea, headaches or visual changes, or any other complaints. (Abdiaziz Delaney) - Related Data Home Medications Medication Instructions Recorded Confirmed Divalproex [Depakote] 250 mg PO Q12H 05/02/16 01/03/17 Levothyroxine Sodium [Synthroid] 50 mcg PO DAILY 05/02/16 01/03/17 Metoprolol Tartrate [Lopressor] 50 mg PO BID 05/02/16 01/03/17 Omeprazole 20 mg PO BID 05/02/16 01/03/17 Pramipexole [Mirapex] 2 mg PO HS 05/02/16 01/03/17 Torsemide 10 mg PO BID 05/02/16 01/03/17 traMADol HCl [Ultram] 50 mg PO DAILY PRN 08/05/16 01/03/17 Albuterol Sulfate [Proair 2 puff INHALATION RT-Q4H PRN 10/10/16 01/03/17 Respiclick] traZODone HCL [Desyrel] 150 mg PO HS 10/10/16 01/03/17 Albuterol Nebulized [Ventolin 2.5 mg INHALATION RT-Q6H PRN 12/30/16 01/03/17 Nebulized] Aspirin EC [Ecotrin Low Dose] 81 mg PO DAILY 12/30/16 01/03/17 Cyanocobalamin (Vitamin B-12) 3,000 mcg PO DAILY 12/30/16 01/03/17 [Vitamin B-12] FLUoxetine HCL [PROzac] 40 mg PO DAILY 12/30/16 01/03/17 Gabapentin [Neurontin] 1,200 mg PO TID 12/30/16 01/03/17 Solifenacin Succinate [Vesicare] 5 mg PO BID 12/30/16 01/03/17 Previous Rx's Medication Instructions Recorded LORazepam [Ativan] 0.5 mg PO TID PRN #15 tab 01/01/17 Allergies Allergy/AdvReac Type Severity Reaction Status Date / Time Penicillins Allergy Swelling Verified 01/03/17 18:44 adhesive tape AdvReac Severe Peels Skin Verified 01/03/17 18:44 prochlorperazine AdvReac Agitation Verified 01/03/17 18:44 [From Compazine] prochlorperazine edisylate AdvReac Agitation Verified 01/03/17 18:44 [From Compazine] prochlorperazine maleate AdvReac Agitation Verified 01/03/17 18:44 [From Compazine] Review of Systems ROS Other: All systems not noted in ROS Statement are negative. <Abdiaziz Delaney - Last Filed: 01/03/17 20:03> ROS Other: All systems not noted in ROS Statement are negative. <Holland Murphy - Last Filed: 01/03/17 20:11> ROS Statement: Those systems with pertinent positive or pertinent negative responses have been documented in the HPI. Past Medical History Past Medical History: Asthma, Chest Pain / Angina, Fibromyalgia, GERD/Reflux, Hypertension, Thyroid Disorder Additional Past Medical History / Comment(s): back pain, DDD, restless leg, migraines morbid obesity, pseudotumor cerebri, bladder incontinence, anemia History of Any Multi-Drug Resistant Organisms: None Reported Date of last positivie culture/infection: None MDRO Source:: None Past Surgical History: Appendectomy, Bariatric Surgery, Cholecystectomy, Hysterectomy, Tonsillectomy Additional Past Surgical History / Comment(s): LAP-BAND surgery in 2009 with loss of 60 pounds and gained 50 pounds back. Past Psychological History: Anxiety, Depression Smoking Status: Current some day smoker Past Alcohol Use History: None Reported Additional Past Alcohol Use History / Comment(s): Patient is a lifelong nonsmoker. She denies any medical marijuana, marijuana, street drug use. She states she drinks alcohol rarely. She is on disability due to pseudotumor cerebri and fibromyalgia. She states she uses a cane but also has a walker available. She does not have a CPAP, oxygen or nebulizer. Past Drug Use History: None Reported - Past Family History Mother Additional Family Medical History / Comment(s): Mother is alive at age 66 with history of myocardial infarction 2, hypertension, hyperlipidemia, degenerative disc disease, Arlene's, anxiety and depression. Mother and maternal grandmother have history of TIA. Father Additional Family Medical History / Comment(s): Father is alive at age 69 with history of degenerative disc disease, fibromyalgia, hypertension, anxiety and depression. Brother(s) Additional Family Medical History / Comment(s): Patient has 4 brothers and one has fibromyalgia. Sister(s) Additional Family Medical History / Comment(s): Patient has 2 sisters with fibromyalgia. Patient does not have any children. <Abdiaziz Delaney - Last Filed: 01/03/17 20:03> General Exam Limitations: no limitations <Abdiaziz Delaney - Last Filed: 01/03/17 20:03> General appearance: alert, in no apparent distress Head exam: Present: atraumatic, normocephalic, normal inspection Eye exam: Present: normal appearance, PERRL, EOMI. Absent: scleral icterus, conjunctival injection, periorbital swelling ENT exam: Present: normal exam, mucous membranes moist Neck exam: Present: normal inspection. Absent: tenderness, meningismus, lymphadenopathy Respiratory exam: Present: normal lung sounds bilaterally. Absent: respiratory distress, wheezes, rales, rhonchi, stridor Cardiovascular Exam: Present: regular rate, normal rhythm, normal heart sounds. Absent: systolic murmur, diastolic murmur, rubs, gallop, clicks GI/Abdominal exam: Present: soft, normal bowel sounds. Absent: distended, tenderness, guarding, rebound, rigid Rectal exam: Present: bloody stool Extremities exam: Present: normal inspection, full ROM, normal capillary refill. Absent: tenderness, pedal edema, joint swelling, calf tenderness Back exam: Present: normal inspection Neurological exam: Present: alert, oriented X3, CN II-XII intact Psychiatric exam: Present: normal affect, normal mood Skin exam: Present: warm, dry, intact, normal color. Absent: rash <Holland Murphy - Last Filed: 01/03/17 20:11> - General Exam Comments Initial Comments: General: The patient is awake and alert, in no distress, and does not appear acutely ill. Eye: Pupils are equal, round and reactive to light, extra-ocular movements are intact. No nystagmus. There is normal conjunctiva bilaterally. No signs of icterus. Ears, nose, mouth and throat: There are moist mucous membranes and no oral lesions. Neck: The neck is supple, there is no tenderness or JVD. Cardiovascular: There is a regular rate and rhythm. No murmur, rub or gallop is appreciated. Respiratory: Lungs are clear to auscultation, respirations are non-labored, breath sounds are equal. No wheezes, stridor, rales, or rhonchi. Gastrointestinal: Normal appearance abdomen. Normal bowel sounds. Soft on palpation. Patient does have tenderness left lower quadrant. No rebound tenderness. No CVA tenderness. Musculoskeletal: Normal ROM, no tenderness. Strength 5/5. Sensation intact. Pulses equal bilaterally 2+. Neurological: A&O x 3. CN II-XII intact, There are no obvious motor or sensory deficits. Coordination appears grossly intact. Speech is normal. Skin: Skin is warm and dry and no rashes or lesions are noted. Psychiatric: Cooperative, appropriate mood & affect, normal judgment. : [employer] Benson present for exam. Normal rectal tone. (Abdiaziz Delaney) Course <Abdiaziz Delaney - Last Filed: 01/03/17 20:03> <Holland Murphy - Last Filed: 01/03/17 20:11> Vital Signs 01/03/17 01/03/17 16:52 19:25 Temperature 97.4 F L 97.8 F Pulse Rate 59 L 87 Respiratory 15 16 Rate Blood Pressure 168/79 119/87 O2 Sat by Pulse 99 97 Oximetry - Reevaluation(s) Reevaluation #1: 01/03/17 20:11 Patient is without bloody bowel movement here in the emergency room (Holland Murphy) Medical Decision Making - Lab Data Result diagrams: 01/03/17 19:12 <Abdiaziz Delaney - Last Filed: 01/03/17 20:03> - Lab Data Result diagrams: 01/03/17 19:12 <Holland Murphy - Last Filed: 01/03/17 20:11> - Medical Decision Making Patient reexamined at this time shows no signs of distress. Patient states still having some mild pain to the abdomen. CT is negative for any acute abnormalities. Labs reviewed and does show positive guaiac. Patient's hemoglobin 11.2 Vital stable. Case discussed with attending physician Dr. Murphy. Patient will be admitted For serial H&H. (Abdiaziz Delaney) 46 female in the ER with recurrent revisit secondary to bright red blood per rectum. Patient does not feel like we had an lightheaded weak or dizzy. Patient's hemoglobin is normal, will admit patient for trending of hemoglobin. ( Holland Murphy) - Lab Data Lab Results 01/03/17 01/03/17 01/03/17 Range/Units 17:45 18:42 19:12 WBC 7.4 (3.8-10.6) k/uL RBC 3.97 (3.80-5.40) m/uL Hgb 11.2 L (11.4-16.0) gm/dL Hct 35.0 (34.0-46.0) % MCV 88.1 (80.0-100.0) fL MCH 28.1 (25.0-35.0) pg MCHC 31.9 (31.0-37.0) g/dL RDW 14.2 (11.5-15.5) % Plt Count 190 (150-450) k/uL Neutrophils % 64 % Lymphocytes % 26 % Monocytes % 5 % Eosinophils % 2 % Basophils % 2 % Neutrophils # 4.7 (1.3-7.7) k/uL Lymphocytes # 1.9 (1.0-4.8) k/uL Monocytes # 0.3 (0-1.0) k/uL Eosinophils # 0.2 (0-0.7) k/uL Basophils # 0.1 (0-0.2) k/uL PT (9.0-12.0) sec INR (<1.1) APTT (22.0-30.0) sec Urine Color Light Yellow Urine Appearance Clear (Clear) Urine pH 7.0 (5.0-8.0) Ur Specific [place] 1.005 (1.001-1.035) Urine Protein Negative (Negative) Urine Glucose (UA) Negative (Negative) Urine Ketones Negative (Negative) Urine Blood Negative (Negative) Urine Nitrite Negative (Negative) Urine Bilirubin Negative (Negative) Urine Urobilinogen <2.0 (<2.0) mg/dL Ur Leukocyte Esterase Negative (Negative) Stool Occult Blood Positive H (Negative) 01/03/17 Range/Units 19:12 WBC (3.8-10.6) k/uL RBC (3.80-5.40) m/uL Hgb (11.4-16.0) gm/dL Hct (34.0-46.0) % MCV (80.0-100.0) fL MCH (25.0-35.0) pg MCHC (31.0-37.0) g/dL RDW (11.5-15.5) % Plt Count (150-450) k/uL Neutrophils % % Lymphocytes % % Monocytes % % Eosinophils % % Basophils % % Neutrophils # (1.3-7.7) k/uL Lymphocytes # (1.0-4.8) k/uL Monocytes # (0-1.0) k/uL Eosinophils # (0-0.7) k/uL Basophils # (0-0.2) k/uL PT 11.0 (9.0-12.0) sec INR 1.1 (<1.1) APTT 26.9 (22.0-30.0) sec Urine Color Urine Appearance (Clear) Urine pH (5.0-8.0) Ur Specific [place] (1.001-1.035) Urine Protein (Negative) Urine Glucose (UA) (Negative) Urine Ketones (Negative) Urine Blood (Negative) Urine Nitrite (Negative) Urine Bilirubin (Negative) Urine Urobilinogen (<2.0) mg/dL Ur Leukocyte Esterase (Negative) Stool Occult Blood (Negative) Disposition Time of Disposition: 20:01 <Abdiaziz Delaney - Last Filed: 01/03/17 20:03> <Holland Murphy - Last Filed: 01/03/17 20:11> Clinical Impression: GI bleed Disposition: ADMITTED IP TO THIS [facility] Condition: Stable Referrals: Demi Suero MD [Primary Care Provider] - 1-2 days
--- NOTE | 2017-01-03 18:33 | XR ---
EXAMINATION TYPE: XR KUB DATE OF EXAM: 01/03/2017 6:16 PM COMPARISON: NONE HISTORY: Left-sided abdominal pain TECHNIQUE: 2 views FINDINGS: There is no sign of intestinal obstruction or pneumoperitoneum. There are clips from cholec ystectomy. There is bariatric surgery catheter noted. There is no sign of a mass. There are no pathol ogic calcifications over the kidneys. Lung bases are clear. IMPRESSION: Nonacute abdomen.
[2017-01-03 18:49] LABS: Appearance,Urine Clear (Clear); Bilirubin,Urine Negative (Negative); Glucose,Urine (UA) Negative (Negative); Ketones,Urine Negative (Negative); Leukocyte Esterase,Urine Negative (Negative); Nitrite,Urine Negative (Negative); Protein,Urine Negative (Negative); Specific Gravity,Urine 1.005 (1.001-1.035); UA Billing (MACRO vs. MICRO) CHEM; Urobilinogen,Urine <2.0 mg/dL (<2.0)
--- NOTE | 2017-01-03 18:52 | CT ---
EXAMINATION TYPE: CT abdomen pelvis w con DATE OF EXAM: 01/03/2017 6:36 PM COMPARISON: March 16, 2010 HISTORY: Pt states of blood in stool CT DLP: 3547.4 mGycm Automated exposure control for dose reduction was used. TECHNIQUE: Helical acquisition of images was performed from the lung bases through the pelvis. CONTRAST: Performed without Oral Contrast and with IV Contrast, patient injected with 100 mL of Omnipaque 300. FINDINGS: Lung bases are clear of consolidation. There is no pleural effusion. There is no pericardial effusion . There is a ring around the gastric fundus from bariatric surgery. There are clips from cholecystectomy. Liver shows no focal defect. Bile ducts are not dilated. Pancre as appears normal. Spleen appears normal. There is no adrenal mass. Kidneys show satisfactory contrast opacification. There is no hydronephrosi s. There is no retroperitoneal adenopathy. There is no ascites. Appendix is not seen. There is no sig n of appendicitis. Bladder distends smoothly. There is no sign of a pelvic mass. There is no free flu id. I see no intestinal wall thickening. There is no evidence of a bony destructive process. There is a small umbilical hernia that contains omental fat. IMPRESSION: ESSENTIALLY NEGATIVE CT SCAN OF THE ABDOMEN AND PELVIS. I DO NOT SEE A CAUSE FOR THE PATIENT'S SYMPTO MS.
[2017-01-03 19:30] LABS: Basophils # (A) 0.1 k/uL (0-0.2); Basophils % (A) 2 %; CH 27.9; CHCM 31.8; Eosinophils # (A) 0.2 k/uL (0-0.7); Eosinophils % (A) 2 %; HDW 2.27; HGB 11.2 gm/dL (11.4-16.0); Luc # (Auto) 0.15; Luc % (Auto) 2; Lymphocytes # (A) 1.9 k/uL (1.0-4.8); Lymphocytes % (A) 26 %; MCH 28.1 pg (25.0-35.0); MCHC 31.9 g/dL (31.0-37.0); MCV 88.1 fL (80.0-100.0); Mean Platelet Volume 8.9; Monocytes # (A) 0.3 k/uL (0-1.0); Monocytes % (A) 5 %; Neutrophils # (A) 4.7 k/uL (1.3-7.7); Neutrophils % (A) 64 %; RBC 3.97 m/uL (3.80-5.40); RDW 14.2 % (11.5-15.5); WBC 7.4 k/uL (3.8-10.6); WBC (Perox) 7.81
[2017-01-03 19:42] LABS: INR 1.1 (<1.1); Partial Thromboplastin Time 26.9 sec (22.0-30.0)
[2017-01-03] MEDS ORDERED: SODIUM CHLORIDE 0.9% 1,000 ML IV ONE (20:06)
[2017-01-03] MEDS ORDERED: NALOXONE 0.4 MG/ML 1 ML VIAL IV PRN (20:07)
[2017-01-03 20:10] LABS: ALT 23 U/L (9-52); AST 14 U/L (14-36); Alkaline Phosphatase 112 U/L (38-126); Anion Gap 11 mmol/L; Blood Urea Nitrogen 15 mg/dL (7-17); Calcium 9.2 mg/dL (8.4-10.2); Carbon Dioxide 28 mmol/L (22-30); Chloride 101 mmol/L (98-107); Glucose 75 mg/dL (74-99); Non-African American GFR(MDRD) >60 (>60 ml/min/1.73 sqM); Potassium 4.1 mmol/L (3.5-5.1); Sodium 140 mmol/L (137-145); Total Bilirubin 0.7 mg/dL (0.2-1.3); Total Protein 6.7 g/dL (6.3-8.2)
[2017-01-03] MEDS: HYDROmorphone 1 MG/ML 1 ML SYRINGE IV PRN (20:44)
[2017-01-04] MEDS ORDERED: ALBUTEROL SULFATE INHALATION PRN (00:15)
[2017-01-04] MEDS ORDERED: traMADol 50 MG TAB PO PRN (00:15)
[2017-01-04 00:45] LABS: CH 28.2; HCT 32.6 % (34.0-46.0); HDW 2.28; HGB 10.2 gm/dL (11.4-16.0); MCH 27.7 pg (25.0-35.0); MCHC 31.2 g/dL (31.0-37.0); MCV 88.7 fL (80.0-100.0); Mean Platelet Volume 8.6; RBC 3.68 m/uL (3.80-5.40); RDW 14.4 % (11.5-15.5); WBC 8.7 k/uL (3.8-10.6)
[2017-01-04] MEDS: HYDROmorphone 1 MG/ML 1 ML SYRINGE IV PRN ×6 (01:03→20:19)
[2017-01-04] MEDS: ONDANSETRON 4 MG/2 ML VIAL IVP PRN ×3 (01:03→20:44)
[2017-01-04] MEDS: LORazepam 0.5 MG TAB PO PRN ×2 (01:04→19:34)
[2017-01-04] MEDS: DIVALPROEX 250 MG TABLET.DR PO SCH ×3 (01:11→21:40)
[2017-01-04] MEDS: LEVOTHYROXINE 50 MCG TAB PO SCH (04:26)
[2017-01-04] MEDS: ALBUTEROL NEBULIZED 2.5 MG/3 ML INHALATION PRN ×2 (07:49→19:22)
[2017-01-04] MEDS: PANTOPRAZOLE 40 MG/10 ML VIAL IVP SCH (08:12)
[2017-01-04 08:36] LABS: Basophils # (A) 0.1 k/uL (0-0.2); Basophils % (A) 1 %; CHCM 31.4; Eosinophils # (A) 0.2 k/uL (0-0.7); Eosinophils % (A) 2 %; HCT 33.4 % (34.0-46.0); HDW 2.28; HGB 10.5 gm/dL (11.4-16.0); Luc % (Auto) 3; Lymphocytes # (A) 1.7 k/uL (1.0-4.8); Lymphocytes % (A) 26 %; MCH 28.2 pg (25.0-35.0); MCHC 31.5 g/dL (31.0-37.0); MCV 89.7 fL (80.0-100.0); Mean Platelet Volume 8.9; Monocytes # (A) 0.4 k/uL (0-1.0); Monocytes % (A) 6 %; Neutrophils % (A) 62 %; RBC 3.73 m/uL (3.80-5.40); RDW 14.3 % (11.5-15.5); WBC 6.5 k/uL (3.8-10.6); WBC (Perox) 6.87
[2017-01-04] MEDS ORDERED: ASPIRIN 81 MG CHEW PO SCH (09:00)
[2017-01-04 09:09] LABS: ALT 24 U/L (9-52); AST 14 U/L (14-36); Alkaline Phosphatase 106 U/L (38-126); Anion Gap 8 mmol/L; Blood Urea Nitrogen 13 mg/dL (7-17); Calcium 8.7 mg/dL (8.4-10.2); Carbon Dioxide 31 mmol/L (22-30); Chloride 103 mmol/L (98-107); Glucose 81 mg/dL (74-99); Non-African American GFR(MDRD) 60 (>60 ml/min/1.73 sqM); Sodium 142 mmol/L (137-145); Total Bilirubin 1.2 mg/dL (0.2-1.3); Total Protein 6.2 g/dL (6.3-8.2)
[2017-01-04] MEDS: CYANOCOBALAMIN 500 MCG TAB PO SCH (09:37)
[2017-01-04] MEDS: FLUoxetine HCL 20 MG CAP PO SCH (09:37)
[2017-01-04] MEDS: GABAPENTIN 400 MG CAP PO SCH ×3 (09:37→21:40)
[2017-01-04] MEDS: METOPROLOL TARTRATE 50 MG TAB PO SCH ×2 (09:37→20:50)
[2017-01-04] MEDS: TORSEMIDE 20 MG TAB PO SCH ×2 (09:38→21:40)
[2017-01-04] MEDS ORDERED: BISACODYL 5 MG TABLET.DR PO STA (10:14)
--- NOTE | 2017-01-04 10:27 | P.CONS ---
History of Present Illness - Reason for Consult Consult date: 01/04/17 Rectal bleeding Requesting physician: Jessica Hernandez - History of Present Illness 46-year-old female patient Dr. Suero with a past medical history of morbid obesity BMI 62, LAP-BAND, marijuana, fibromyalgia, TIA, anemia, chest pain, GERD , hypertension, hyperthyroidism, restless leg, migraines, anxiety depression, Clostridium difficile colitis, pseudotumor cerebri, and asthma. Patient presents with lower crampy abdominal pain that started yesterday with a bowel movement 1 that was mixed with dark/burgundy colored stool with clots. Recent admission earlier this week for chest pain and discharge. Hemoglobin 11.2. MCV 88. Platelet 190. INR 1.1. BUN 15. Creatinine 0.7. When reviewing prior medical records average hemoglobin ranges between 10-12. Patient is always known she is somewhat "anemic" and has not required iron supplementation or blood transfusions. History of hysterectomy, denies vaginal bleeding. Denies excessive usage of aspirin or NSAIDs. Takes a baby aspirin daily for history of TIA. No alcohol. No recent antibiotics. Denies fever or chills. Denies gross melena or hematemesis. Denies epigastric pain. LAP-BAND balloon is currently empty. Last colonoscopy about 5 years ago and her memory precancerous polyp was removed. No EGD performed over the last 1-[address] abdomen and pelvis reported as negative. Review of Systems Constitutional: Denies fever, chills, sweats, weight gain, or loss. HEENT: Negative for migraines, blurred vision or loss, earaches, drainage, tinnitus, oral mucosal lesions, dysphagia, or odynophagia. CARDIAC: Chest pain. Hypertension. Negative for chest pain, arrhythmias, or palpitation. RESPIRATORY: Asthma. Marijuana. Negative for shortness of breath, hemoptysis, cough, or sputum production. GI: See HPI for pertinent findings. : Negative for hematuria, urgency, frequency, polyuria, or dysuria. GYNc: Denies possibility of . Negative vaginal discharge. MUSCULOSKELETAL: Fibromyalgia. Degenerative joint disease. Negative for muscle aches, swelling, arthritis, and arthralgias. NEUROLOGIC: Negative for stroke or TIA. ENDOCRINE: Hypothyroidism. SKIN: Negative for rash or itching. PSYCHIATRIC: depression and anxiety All systems: negative (See HPI) Past Medical History Past Medical History: Asthma, Chest Pain / Angina, Fibromyalgia, GERD/Reflux, Hypertension, Thyroid Disorder Additional Past Medical History / Comment(s): back pain, DDD, restless leg, migraines that "start in her neck" morbid obesity, pseudotumor cerebri, bladder incontinence, anemia, anxiety/depression, 2009-c-dff, pt states that she has ibs and her normal is loose and at times can be watery further stated that she goes between 1-10 times a day. History of Any Multi-Drug Resistant Organisms: None Reported Year Discovered:: None MDRO Source:: None Past Surgical History: Appendectomy, Bariatric Surgery, Cholecystectomy, Hysterectomy, Tonsillectomy Additional Past Surgical History / Comment(s): LAP-BAND surgery in 2008 with loss of 60 pounds and gained 50 pounds back.recent stress echo Past Psychological History: Anxiety, Depression Additional Psychological History / Comment(s): pt lives in a home with her , son and 1 cat. has 4 steps up and 7 steps down. uses either a quad cane or walker when up. no outside services. pt is on disabilty. Smoking Status: Current some day smoker Past Alcohol Use History: Occasional Additional Past Alcohol Use History / Comment(s): .someday smoker a pack will last her 1-1.5 weeks She denies any medical marijuana, marijuana, street drug use. She states she drinks alcohol occ She is on disability due to pseudotumor cerebri and fibromyalgia. She states she uses a cane but also has a walker available. Past Drug Use History: None Reported - Past Family History Mother Additional Family Medical History / Comment(s): Mother is alive at age 66 with history of myocardial infarction 2, hypertension, hyperlipidemia, degenerative disc disease, Arlene's, anxiety and depression. Mother and maternal grandmother have history of TIA. Father Additional Family Medical History / Comment(s): Father is alive at age 69 with history of degenerative disc disease, fibromyalgia, hypertension, anxiety and depression. Brother(s) Additional Family Medical History / Comment(s): Patient has 4 brothers and one has fibromyalgia. Sister(s) Additional Family Medical History / Comment(s): Patient has 2 sisters with fibromyalgia. Patient does not have any children. Medications and Allergies Home Medications Medication Instructions Recorded Confirmed Type Divalproex [Depakote] 250 mg PO Q12H 05/02/16 01/03/17 History Levothyroxine Sodium [Synthroid] 50 mcg PO DAILY 05/02/16 01/03/17 History Metoprolol Tartrate [Lopressor] 50 mg PO BID 05/02/16 01/03/17 History Omeprazole 20 mg PO BID 05/02/16 01/03/17 History Pramipexole [Mirapex] 2 mg PO HS 05/02/16 01/03/17 History Torsemide 10 mg PO BID 05/02/16 01/03/17 History traMADol HCl [Ultram] 50 mg PO DAILY PRN 08/05/16 01/03/17 History Albuterol Sulfate [Proair 2 puff INHALATION RT-Q4H PRN 10/10/16 01/03/17 History Respiclick] traZODone HCL [Desyrel] 150 mg PO HS 10/10/16 01/03/17 History Albuterol Nebulized [Ventolin 2.5 mg INHALATION RT-Q6H PRN 12/30/16 01/03/17 History Nebulized] Aspirin EC [Ecotrin Low Dose] 81 mg PO DAILY 12/30/16 01/03/17 History Cyanocobalamin (Vitamin B-12) 3,000 mcg PO DAILY 12/30/16 01/03/17 History [Vitamin B-12] FLUoxetine HCL [PROzac] 40 mg PO DAILY 12/30/16 01/03/17 History Gabapentin [Neurontin] 1,200 mg PO TID 12/30/16 01/03/17 History Solifenacin Succinate [Vesicare] 5 mg PO BID 12/30/16 01/03/17 History Allergies Allergy/AdvReac Type Severity Reaction Status Date / Time Penicillins Allergy Swelling Verified 01/03/17 18:44 adhesive tape AdvReac Severe Peels Skin Verified 01/03/17 18:44 prochlorperazine AdvReac Agitation Verified 01/03/17 18:44 [From Compazine] prochlorperazine edisylate AdvReac Agitation Verified 01/03/17 18:44 [From Compazine] prochlorperazine maleate AdvReac Agitation Verified 01/03/17 18:44 [From Compazine] Physical Exam Vitals: Vital Signs Temp Pulse Pulse Resp BP BP Pulse Ox 01/04/17 08:03 58 L 01/04/17 07:50 58 L 01/04/17 07:00 97.9 F 64 16 103/52 94 L 01/03/17 22:31 97 F L 66 18 139/80 93 L 01/03/17 20:31 98.4 F 87 16 118/87 98 Intake and Output 01/03/17 01/04/17 01/04/17 22:59 06:59 14:59 Intake Total 1199 800 Balance 1199 800 Intake: IV 999 Sodium Chloride 0.9% 1, 999 000 ml @ 999 mls/hr IV . Q1H1M STA Rx#:[id number] Intake, IV Titration 100 800 Amount Sodium Chloride 0.9% 1, 100 800 000 ml @ 100 mls/hr IV . Q10H ONE Rx#:[id number] Oral 100 Other: Voiding Method Toilet Incontinent # Voids 1 General appearance: The patient is alert, oriented, in no acute distress. HET: Head is normocephalic and atraumatic. Pupils are equal and reactive. Oropharynx is clear without lesions. Neck: Supple without lymphadenopathy. Trachea midline. Heart: S1 S2. Regular rate and rhythm. Lungs: No crackles or wheezes are heard. Abdomen: Soft, nontender, nondistended with bowel sounds. No peritoneal signs. No palpable organomegaly or masses. Extremities: Normal skin color and turgor. No cyanosis, rash, ulceration, clubbing, or edema. Radial and pedal pulses are 2/4 bilaterally. Neurological: No focal deficits. Strength and sensation are grossly intact. Results CBC & Chem 7: 01/04/17 08:13 01/04/17 08:13 Labs: Abnormal Lab Results - Last 24 Hours (Table) 01/04/17 01/04/17 01/04/17 Range/Units 00:33 08:13 08:13 RBC 3.68 L 3.73 L (3.80-5.40) m/uL Hgb 10.2 L 10.5 L (11.4-16.0) gm/dL Hct 32.6 L 33.4 L (34.0-46.0) % Carbon Dioxide 31 H (22-30) mmol/L Total Protein 6.2 L (6.3-8.2) g/dL Albumin 3.3 L (3.5-5.0) g/dL CT scan - abdomen: report reviewed (Reviewed by Dr. Sherwood) CT scan - pelvis: report reviewed (Reviewed by Dr. Sherwood) Assessment and Plan (1) GI bleed Narrative/Plan: Etiology unclear possible colitis possible hemorrhoidal other considerations is diverticular bleeding. Status: Acute (2) Morbid obesity with BMI of 60.0-69.9, adult Status: Acute (3) Anemia Narrative/Plan: Possible acute blood loss Status: Acute Plan: 1. EGD colonoscopy tomorrow for workup of anemia and rectal bleeding. Protonix 40 mg IV daily. 2. Clear liquid diet. Nothing by mouth after midnight. 3. Iron indices. The bottom hoop driver has discussed the risks, benefits and alternative therapies for the above-mentioned procedure and for both sedation/analgesia as well as necessary blood product administration, if indicated, as they pertain to this patient. The patient has indicated understanding and acceptance of the risks and procedures discussed. Thank you for this kind referral and the opportunity to participate in the care of your patient. This consultation was discussed with Dr. Sherwood. The impression and plan of care have been directed as dictated.
--- NOTE | 2017-01-04 10:38 | P.HPIM ---
History of Present Illness H&P Date: 01/04/17 Chief Complaint: Left-sided abdominal pain with bright red blood and black stool This is a 46-year-old female, a patient of Dr. Suero. She has a known past medical history of morbid obesity, hypertension, chronic pain syndrome and fibromyalgia and generalized anxiety disorder. She also reports having history of irritable bowel syndrome and one previous episode of C. diff colitis. Patient recently discharged from the hospital on Sunday for chest pain. Had stress tests completed which was negative. Patient did have evidence of anemia with a hemoglobin of 10.6 at discharge. There is no active bleeding at that time. She patient had reported a week ago having some black stool. She's the Lodine was discontinued at discharge. Patient reports having colonoscopy about 5 years ago with polyps removed that were precancerous and told to have colonoscopy every 5 years. Patient presents back to the emergency room with complaints of left-sided abdominal pain that is radiating across the abdomen. Symptoms started yesterday. She reports having a black stool with bright red blood that filled the toilet. She only had 1 episode. She came into the emergency room for evaluation. Initially hemoglobin was 11.2 today hemoglobin is down to 10.5. Stool for occult blood was positive. Computed tomography scan of the abdomen and pelvis was negative. Patient does report having a history of internal hemorrhoids. Patient denies any fever chills or sweats. Denies any chest pain or shortness of breath. Denies any vomiting. Denies any constipation. Doesn't having some nausea. Review of Systems Please refer to HPI otherwise unremarkable Past Medical History Past Medical History: Asthma, Chest Pain / Angina, Fibromyalgia, GERD/Reflux, Hypertension, Thyroid Disorder Additional Past Medical History / Comment(s): back pain, DDD, restless leg, migraines that "start in her neck" morbid obesity, pseudotumor cerebri, bladder incontinence, anemia, anxiety/depression, [id number], pt states that she has ibs and her normal is loose and at times can be watery further stated that she goes between 1-10 times a day. History of Any Multi-Drug Resistant Organisms: None Reported Date of last positivie culture/infection: None MDRO Source:: None Past Surgical History: Appendectomy, Bariatric Surgery, Cholecystectomy, Hysterectomy, Tonsillectomy Additional Past Surgical History / Comment(s): LAP-BAND surgery in 2008 with loss of 60 pounds and gained 50 pounds back.recent stress echo Past Psychological History: Anxiety, Depression Additional Psychological History / Comment(s): pt lives in a home with her , son and 1 cat. has 4 steps up and 7 steps down. uses either a quad cane or walker when up. no outside services. pt is on disabilty. Smoking Status: Current some day smoker Past Alcohol Use History: Occasional Additional Past Alcohol Use History / Comment(s): .someday smoker a pack will last her 1-1.5 weeks She denies any medical marijuana, marijuana, street drug use. She states she drinks alcohol occ She is on disability due to pseudotumor cerebri and fibromyalgia. She states she uses a cane but also has a walker available. Past Drug Use History: None Reported - Past Family History Mother Additional Family Medical History / Comment(s): Mother is alive at age 66 with history of myocardial infarction 2, hypertension, hyperlipidemia, degenerative disc disease, Arlene's, anxiety and depression. Mother and maternal grandmother have history of TIA. Father Additional Family Medical History / Comment(s): Father is alive at age 69 with history of degenerative disc disease, fibromyalgia, hypertension, anxiety and depression. Brother(s) Additional Family Medical History / Comment(s): Patient has 4 brothers and one has fibromyalgia. Sister(s) Additional Family Medical History / Comment(s): Patient has 2 sisters with fibromyalgia. Patient does not have any children. Medications and Allergies Home Medications Medication Instructions Recorded Confirmed Type Divalproex [Depakote] 250 mg PO Q12H 05/02/16 01/03/17 History Levothyroxine Sodium [Synthroid] 50 mcg PO DAILY 05/02/16 01/03/17 History Metoprolol Tartrate [Lopressor] 50 mg PO BID 05/02/16 01/03/17 History Omeprazole 20 mg PO BID 05/02/16 01/03/17 History Pramipexole [Mirapex] 2 mg PO HS 05/02/16 01/03/17 History Torsemide 10 mg PO BID 05/02/16 01/03/17 History traMADol HCl [Ultram] 50 mg PO DAILY PRN 08/05/16 01/03/17 History Albuterol Sulfate [Proair 2 puff INHALATION RT-Q4H PRN 10/10/16 01/03/17 History Respiclick] traZODone HCL [Desyrel] 150 mg PO HS 10/10/16 01/03/17 History Albuterol Nebulized [Ventolin 2.5 mg INHALATION RT-Q6H PRN 12/30/16 01/03/17 History Nebulized] Aspirin EC [Ecotrin Low Dose] 81 mg PO DAILY 12/30/16 01/03/17 History Cyanocobalamin (Vitamin B-12) 3,000 mcg PO DAILY 12/30/16 01/03/17 History [Vitamin B-12] FLUoxetine HCL [PROzac] 40 mg PO DAILY 12/30/16 01/03/17 History Gabapentin [Neurontin] 1,200 mg PO TID 12/30/16 01/03/17 History Solifenacin Succinate [Vesicare] 5 mg PO BID 12/30/16 01/03/17 History Allergies Allergy/AdvReac Type Severity Reaction Status Date / Time Penicillins Allergy Swelling Verified 01/03/17 18:44 adhesive tape AdvReac Severe Peels Skin Verified 01/03/17 18:44 prochlorperazine AdvReac Agitation Verified 01/03/17 18:44 [From Compazine] prochlorperazine edisylate AdvReac Agitation Verified 01/03/17 18:44 [From Compazine] prochlorperazine maleate AdvReac Agitation Verified 01/03/17 18:44 [From Compazine] Physical Exam Vitals: Vital Signs Temp Pulse Pulse Resp BP BP Pulse Ox 01/04/17 08:03 58 L 01/04/17 07:50 58 L 01/04/17 07:00 97.9 F 64 16 103/52 94 L 01/03/17 22:31 97 F L 66 18 139/80 93 L 01/03/17 20:31 98.4 F 87 16 118/87 98 Intake and Output 01/03/17 01/04/17 01/04/17 22:59 06:59 14:59 Intake Total 1199 800 Balance 1199 800 Intake: IV 999 Sodium Chloride 0.9% 1, 999 000 ml @ 999 mls/hr IV . Q1H1M STA Rx#:[id number] Intake, IV Titration 100 800 Amount Sodium Chloride 0.9% 1, 100 800 000 ml @ 100 mls/hr IV . Q10H ONE Rx#:[id number] Oral 100 Other: Voiding Method Toilet Incontinent # Voids 1 Head normocephalic Neck supple Lungs clear to auscultation bilaterally no wheezing or crackles Heart regular rate and rhythm S1-S2, no rub or gallop Abdomen is soft nondistended positive bowel sounds no hepatosplenomegaly. Obese. Tender left side of abdomen Extremities no edema Neuro alert and orientated to 3 Results CBC & Chem 7: 01/04/17 08:13 01/04/17 08:13 Labs: Abnormal Lab Results - Last 24 Hours (Table) 01/04/17 01/04/17 01/04/17 Range/Units 00:33 08:13 08:13 RBC 3.68 L 3.73 L (3.80-5.40) m/uL Hgb 10.2 L 10.5 L (11.4-16.0) gm/dL Hct 32.6 L 33.4 L (34.0-46.0) % Carbon Dioxide 31 H (22-30) mmol/L Total Protein 6.2 L (6.3-8.2) g/dL Albumin 3.3 L (3.5-5.0) g/dL Thrombosis Risk Factor Assmnt - Choose All That Apply Any of the Below Risk Factors Present?: Yes Each Factor Represents 1 point: Age 41-60 years, Obesity (BMI >25) Other Risk Factors: No Other congenital or acquired thrombophilia - If yes, enter type in comment: No Thrombosis Risk Factor Assessment Total Risk Factor Score: 2 Thrombosis Risk Factor Assessment Level: Low Risk Assessment and Plan Plan: 1. Acute GI bleed: With Abdominal pain with bright red blood per rectum and dark stools. Computed tomography scan of the abdomen and pelvis was negative. Hemoglobin has dropped to 10.5. Stool for occult blood is positive. GI service has been consulted. Continue with the IV Protonix. Continue monitoring CBC. Lodine discontinued on Sunday. Hold aspirin. Patient scheduled for EGD. Agree with checking iron studies 2. Morbid obesity with a BMI of 62.2 kg. History of lap band. Patient is following up with her surgeon outpatient for possible sleep gastrectomy 3. Chronic pain syndrome with fibromyalgia 4. Generalized anxiety disorder continue Prozac and Ativan GI prophylaxis Protonix and DVT prophylaxis SCDs Time with Patient: Greater than 30 (Greater than 50% of the total time spent in counseling and coordination of care.I performed an examination of the patient and discussed their management with the physician Commodities Requirements Analyst. I have reviewed the Physician Commodities Requirements Analyst's notes and agree with the documented findings and plan of care)
[2017-01-04 14:01] LABS: % Iron Saturation 28.9 % (20-50)
[2017-01-04] MEDS ORDERED: PEG 3350-NA SULF,BICARB,CL/KCL 4,000 ML BOTTLE PO ONE (16:00)
[2017-01-04] MEDS ORDERED: PRAMIPEXOLE 1 MG TAB PO SCH (21:00)
[2017-01-04] MEDS ORDERED: traZODone HCL 50 MG TAB PO SCH (21:00)
[2017-01-04 22:17] VITALS: PULSE 67; RESP 18
[2017-01-04 23:08] LABS: Glucose,Whole Blood 100 mg/dL (75-99)
[2017-01-05] MEDS: LEVOTHYROXINE 50 MCG TAB PO SCH (05:54)
[2017-01-05 07:41] VITALS: BP 146/84; TEMP 97.8
[2017-01-05 08:14] LABS: Basophils # (A) 0.1 k/uL (0-0.2); Basophils % (A) 1 %; CH 27.6; CHCM 30.8; Eosinophils # (A) 0.1 k/uL (0-0.7); Eosinophils % (A) 1 %; HCT 36.5 % (34.0-46.0); HDW 2.26; Hypochromasia Slight; Luc # (Auto) 0.16; Luc % (Auto) 2; Lymphocytes % (A) 22 %; MCH 27.2 pg (25.0-35.0); MCHC 30.2 g/dL (31.0-37.0); MCV 90.1 fL (80.0-100.0); Mean Platelet Volume 7.8; Monocytes # (A) 0.4 k/uL (0-1.0); Monocytes % (A) 5 %; Neutrophils # (A) 6.4 k/uL (1.3-7.7); Neutrophils % (A) 70 %; RBC 4.05 m/uL (3.80-5.40); RDW 13.9 % (11.5-15.5); WBC 9.2 k/uL (3.8-10.6); WBC (Perox) 9.59
[2017-01-05 08:27] LABS: ALT 23 U/L (9-52); AST 16 U/L (14-36); Alkaline Phosphatase 126 U/L (38-126); Anion Gap 12 mmol/L; Blood Urea Nitrogen 10 mg/dL (7-17); Calcium 8.9 mg/dL (8.4-10.2); Carbon Dioxide 32 mmol/L (22-30); Chloride 99 mmol/L (98-107); Glucose 86 mg/dL (74-99); Non-African American GFR(MDRD) >60 (>60 ml/min/1.73 sqM); Potassium 3.7 mmol/L (3.5-5.1); Sodium 143 mmol/L (137-145); Total Bilirubin 1.1 mg/dL (0.2-1.3)
[2017-01-05] MEDS ORDERED: OXYBUTYNIN 10 MG TAB.ER.24 PO SCH (09:00)
--- NOTE | 2017-01-05 11:18 | P.PN ---
Subjective This is a 46-year-old female presented with GI bleed. Her stools had some bright red blood as well as black stool. Hemoglobin was 10.5. She is scheduled for EGD and colonoscopy today. She's had no further blood or black stools. She tolerated the colonoscopy prep. She denies any chest pain or shortness of breath. Still complaining of the left-sided abdominal pain that radiates across her stomach. Patient also having some nausea and no vomiting. Denies any chest pain or shortness of breath. Denies any burning with urination. Objective - Vital Signs Vital signs: Vital Signs Temp 97.8 F 01/05/17 07:00 Pulse 67 01/05/17 07:00 Resp 18 01/05/17 07:00 BP 146/84 01/05/17 07:00 Pulse Ox 95 01/05/17 07:00 Intake & Output 01/04/17 01/05/17 01/05/17 18:59 06:59 18:59 Output Total 2 Balance -2 Output: Urine 2 Other: Voiding Method Toilet Toilet Incontinent Incontinent # Voids 1 1 # Bowel Movements 1 - Exam Head normocephalic Neck supple Lungs clear to auscultation bilaterally no wheezing or crackles Heart regular rate and rhythm S1-S2, no rub or gallop Abdomen is soft nondistended left-sided tenderness positive bowel sounds Extremities no edema Neuro alert and orientated to 3 - Labs CBC & Chem 7: 01/05/17 07:21 01/05/17 07:21 Labs: Abnormal Lab Results - Last 24 Hours (Table) 01/04/17 01/05/17 01/05/17 Range/Units 23:05 07:21 07:21 Hgb 11.0 L (11.4-16.0) gm/dL MCHC 30.2 L (31.0-37.0) g/dL Carbon Dioxide 32 H (22-30) mmol/L POC Glucose (mg/dL) 100 H (75-99) mg/dL Assessment and Plan Plan: 1. Acute GI bleed: With Abdominal pain with bright red blood per rectum and dark stools. Computed tomography scan of the abdomen and pelvis was negative. Hemoglobin is up to 11. Stool for occult blood is positive. GI service has been consulted. Continue with the IV Protonix. Continue monitoring CBC. Lodine discontinued on Sunday. Hold aspirin. Patient scheduled for EGD and colonoscopy. Iron studies are normal 2. Morbid obesity with a BMI of 62.2 kg. History of lap band. Patient is following up with her surgeon outpatient for possible sleep gastrectomy 3. Chronic pain syndrome with fibromyalgia 4. Generalized anxiety disorder continue Prozac and Ativan GI prophylaxis Protonix and DVT prophylaxis SCDs
[2017-01-05] MEDS ORDERED: KETAMINE 10 MG/ML 20 ML VIAL ONE (12:54)
[2017-01-05] MEDS ORDERED: GLYCOPYRROLATE 0.2 MG/ML 2 ML VIAL ONE (12:54)
[2017-01-05] MEDS ORDERED: PROPOFOL 10 MG/ML 20 ML VIAL IV ONE (12:54)
[2017-01-05] MEDS ORDERED: MIDAZOLAM 2 MG/2 ML VIAL ONE (12:54)
[2017-01-05] MEDS ORDERED: IV FLUID CONTINUATION 1,000 ML IV ONE (12:56)
--- NOTE | 2017-01-05 13:17 | P.PCN ---
Date of Procedure: 01/05/17 Procedure(s) Performed: Brief history: Patient is a pleasant 46-year-old white female, scheduled for an elective upper endoscopy as well as colonoscopy as a part of evaluation of abdominal pain, acute GI bleed last 2 days' duration. Her initial hemoglobin was 11.5 and this morning it is 10.8 g/dL. She denies any nausea vomiting. Procedure performed: Esophagogastroduodenoscopy with biopsy Colonoscopy Preoperative diagnosis: Abdominal pain and GI bleed Anesthesia: MAC Procedure: After informed consent was obtained from the patient was brought into the endoscopy unit and IV conscious sedation was administered by anesthesia under continuous monitoring. Initially upper endoscopy was done. The Olympus GF 160 video endoscope was inserted inserted into the mouth and esophagus intubated without any difficulty and was gradually advanced into the stomach and duodenum and carefully examined. The bulb and second part of the duodenum appeared normal. Biopsies were done from the duodenum to rule out celiac disease. The scope was then withdrawn into the stomach adequately insufflated with air and upon careful examination the antrum and body, cardia and fundus appeared normal. The scope was then withdrawn into the esophagus. The GE junction was located at 40 cm to the incisors. It appeared regular with no erythema erosions or ulcerations. Rest of the esophagus appeared normal. Patient tolerated the procedure well. At this time the patient continued to remain sedation. Initial digital rectal examination was normal. Olympus CF 160 video colonoscope was then inserted into the rectum and gradually advanced to the cecum without any difficulty. Careful examination was performed as the scope was gradually being withdrawn. The prep was excellent. The cecum, ascending colon, transverse colon, descending colon, sigmoid colon and rectum appeared normal. Retroflexion was performed in the rectum and no lesions were noted. Patient tolerated the procedure well. Impression: 1. Upper endoscopy was essentially within normal limits with no evidence of esophagitis or peptic ulcer disease. 2. Colonoscopy revealed a normal-appearing colon from rectum to cecum with no evidence of colitis, colorectal neoplasia or diverticulosis. Recommendations: Findings of this examination were discussed with the patient . She'll be started on a regular diet and can be discharged home. She was advised to follow up in office in 2-3 weeks from discharge from the hospital
[2017-01-05] MEDS: LORazepam 0.5 MG TAB PO PRN (14:00)
[2017-01-05] MEDS: CYANOCOBALAMIN 500 MCG TAB PO SCH (14:00)
[2017-01-05] MEDS: GABAPENTIN 400 MG CAP PO SCH (14:01)
[2017-01-05] MEDS: FLUoxetine HCL 20 MG CAP PO SCH (14:01)
[2017-01-05] MEDS: METOPROLOL TARTRATE 50 MG TAB PO SCH (14:02)
[2017-01-05] MEDS: TORSEMIDE 20 MG TAB PO SCH (14:02)
[2017-01-05] MEDS: PANTOPRAZOLE 40 MG/10 ML VIAL IVP SCH (14:03)
[2017-01-05] MEDS: DIVALPROEX 250 MG TABLET.DR PO SCH (14:03)
[2017-01-05] MEDS: HYDROmorphone 1 MG/ML 1 ML SYRINGE IV PRN (14:04)
--- NOTE | 2017-01-05 14:51 | P.DS ---
Providers Date of admission: 01/03/17 20:10 Expected date of discharge: 01/05/17 Attending physician: Jessica Hernandez Primary care physician: Demi Suero [facility] Course: diagnoses on discharge #1 episode of abdominal pain and left sided #2 episode of bright red blood with stool and black stool #3 mild anemia hemoglobin stable throughout the admission #4 normal EGD and colonoscopy Hospital course patient is a 46-year-old female who presented to [facility] emergency room due to left sided abdominal pain with black stool and bright red blood in the stools she was admitted to medical floor she was started on IV Protonix she was seen by gastroenterology she underwent EGD and colonoscopy during this admission by Dr. Iris Gerber. results of EGD and colonoscopy were within normal limits without any evidence of bleeding. Hemoglobin was stable it was 11.2 at the time of admission and 11.0 at the time of discharge Patient was discharged home on 01/05/2017 She will be followed by her primary care physician Dr. Suero in 1-2 weeks She will also be followed by Dr. Iris Gerber mailing machine assistant in 2-3 weeks At the time of discharge she was given a prescription for omeprazole 20 mg 1 daily And a prescription for Ativan per her request 0.5 mg 3 times daily she was given #21 pills Otherwise she will continue her medication as prior to admission Patient Condition at Discharge: Stable Plan - Discharge Summary Discharge Medication List Divalproex [Depakote] 250 mg PO Q12H 05/02/16 [History] Levothyroxine Sodium [Synthroid] 50 mcg PO DAILY 05/02/16 [History] Metoprolol Tartrate [Lopressor] 50 mg PO BID 05/02/16 [History] Omeprazole 20 mg PO BID 05/02/16 [History] Pramipexole [Mirapex] 2 mg PO HS 05/02/16 [History] Torsemide 10 mg PO BID 05/02/16 [History] traMADol HCl [Ultram] 50 mg PO DAILY PRN 08/05/16 [History] Albuterol Sulfate [Proair Respiclick] 2 puff INHALATION RT-Q4H PRN 10/10/16 [ History] traZODone HCL [Desyrel] 150 mg PO HS 10/10/16 [History] Albuterol Nebulized [Ventolin Nebulized] 2.5 mg INHALATION RT-Q6H PRN 12/30/16 [ History] Aspirin EC [Ecotrin Low Dose] 81 mg PO DAILY 12/30/16 [History] Cyanocobalamin (Vitamin B-12) [Vitamin B-12] 3,000 mcg PO DAILY 12/30/16 [ History] FLUoxetine HCL [PROzac] 40 mg PO DAILY 12/30/16 [History] Gabapentin [Neurontin] 1,200 mg PO TID 12/30/16 [History] Solifenacin Succinate [Vesicare] 5 mg PO BID 12/30/16 [History] LORazepam [Ativan] 0.5 mg PO TID PRN #15 tab 01/01/17 [Rx] Follow up Appointment(s)/Referral(s): Demi Suero MD [Primary Care Provider] - 1-2 days
== END 2017-01-05 16:24 | disposition home or self-care (01) ==
LOC: EC 15:34 → 5MS5E 20:10
PROVIDERS: ADMIT Internal Medicine; ATTEND Internal Medicine
DX: R10.9 Unspecified abdominal pain (principal); D64.9 Anemia, unspecified; K92.1 Melena; G25.81 Restless legs syndrome; E66.01 Morbid (severe) obesity due to excess calories; Z68.44 Body mass index [BMI] 60.0-69.9, adult; E03.9 Hypothyroidism, unspecified; J45.909 Unspecified asthma, uncomplicated; K21.9 Gastro-esophageal reflux disease without esophagitis; F32.9 Major depressive disorder, single episode, unspecified; M79.7 Fibromyalgia; M54.9 Dorsalgia, unspecified; G89.4 Chronic pain syndrome; F41.1 Generalized anxiety disorder; G93.2 Benign intracranial hypertension; G43.909 Migraine, unspecified, not intractable, without status migrainosus; R32 Unspecified urinary incontinence; I10 Essential (primary) hypertension; E05.90 Thyrotoxicosis, unspecified without thyrotoxic crisis or storm; Z79.899 Other long term (current) drug therapy; Z79.82 Long term (current) use of aspirin; Z88.0 Allergy status to penicillin; Z88.8 Allergy status to other drugs, medicaments and biological substances; Z91.048 Other nonmedicinal substance allergy status; F17.200 Nicotine dependence, unspecified, uncomplicated; Z98.84 Bariatric surgery status; Z82.49 Family history of ischemic heart disease and other diseases of the circulatory system; Z86.73 Personal history of transient ischemic attack (TIA), and cerebral infarction without residual deficits; Z79.891 Long term (current) use of opiate analgesic
CPT/HCPCS: 96361; 96374; 96375; 99285; 36415; 94640 ×2; 88305; 80053 ×3; 82728; 83540; 83550; 85025 ×3; 85027; 85610; 85730; 82272; 81003; 74000; 74177; 45378; 43239; G0378 ×3; J2250; J2405; J1170 ×3; Q9967; J2704; C9113 ×3; 96376

== ENCOUNTER 2017-01-09 20:30 | Emergency (ER) | payer MEDICARE ==
[2017-01-09 20:59] VITALS: PULSE 68; RESP 18
[2017-01-09] MEDS ORDERED: KETOROLAC 30 MG/ML 1 ML VIAL IVP STA (22:02)
[2017-01-09] MEDS ORDERED: SODIUM CHLORIDE 0.9% 1,000 ML IV ONE (22:02)
[2017-01-09] MEDS ORDERED: MAG HYDROX/AL HYDROX/SIMETH 30 ML, HYOSCYAMINE ELIXIR 10 ML, CIMETIDINE HCL 300 MG, LID... PO STA ×4 (22:02)
[2017-01-09] MEDS ORDERED: MORPHINE SULFATE 4 MG/ML SYRINGE IVP STA (22:02)
[2017-01-09] MEDS ORDERED: ONDANSETRON 4 MG/2 ML VIAL IVP STA (22:02)
[2017-01-09 22:44] LABS: Amorphous Sediment,Urine Rare /hpf; Appearance,Urine Cloudy (Clear); Bacteria,Urine Rare /hpf; Bilirubin,Urine 2+ (Negative); Glucose,Urine (UA) Negative (Negative); Ketones,Urine Negative (Negative); Leukocyte Esterase,Urine Trace (Negative); Mucus,Urine Rare /hpf; Nitrite,Urine Negative (Negative); PH, Urine 7.5 (5.0-8.0); Particle Count 18972; Protein,Urine Trace (Negative); RBC,Urine 1 /hpf (0-5); Specific Gravity,Urine 1.018 (1.001-1.035); Squamous Epithelial Cell,Urine 2 /hpf (0-4); UA Billing (MACRO vs. MICRO) MICRO; WBC,Urine 3 /hpf (0-5)
[2017-01-09 22:54] LABS: Basophils # (A) 0.1 k/uL (0-0.2); Basophils % (A) 1 %; CH 28.1; CHCM 32.5; Eosinophils # (A) 0.2 k/uL (0-0.7); Eosinophils % (A) 2 %; HCT 35.2 % (34.0-46.0); HGB 11.5 gm/dL (11.4-16.0); Luc # (Auto) 0.19; Luc % (Auto) 2; Lymphocytes # (A) 1.8 k/uL (1.0-4.8); Lymphocytes % (A) 21 %; MCH 28.3 pg (25.0-35.0); MCHC 32.6 g/dL (31.0-37.0); Mean Platelet Volume 8.9; Monocytes # (A) 0.5 k/uL (0-1.0); Monocytes % (A) 6 %; Neutrophils # (A) 5.8 k/uL (1.3-7.7); Neutrophils % (A) 68 %; RBC 4.04 m/uL (3.80-5.40); RDW 14.2 % (11.5-15.5); WBC 8.6 k/uL (3.8-10.6); WBC (Perox) 9.26
[2017-01-09 23:09] LABS: ALT 24 U/L (9-52); AST 15 U/L (14-36); Alkaline Phosphatase 113 U/L (38-126); Anion Gap 10 mmol/L; Blood Urea Nitrogen 15 mg/dL (7-17); Calcium 9.2 mg/dL (8.4-10.2); Carbon Dioxide 31 mmol/L (22-30); Chloride 100 mmol/L (98-107); Glucose 96 mg/dL (74-99); Non-African American GFR(MDRD) >60 (>60 ml/min/1.73 sqM); Potassium 3.7 mmol/L (3.5-5.1); Sodium 141 mmol/L (137-145); Total Bilirubin 0.9 mg/dL (0.2-1.3); Total Protein 6.9 g/dL (6.3-8.2)
--- NOTE | 2017-01-09 23:26 | XR ---
EXAM: XR Abdomen Complete With XR Chest. CLINICAL HISTORY: Reason: Pain TECHNIQUE: Frontal view of the chest, frontal view of the abdomen/pelvis and upright view of the abdomen. COMPARISON: No relevant prior studies available. FINDINGS: There is no free air. Nonobstructive bowel gas pattern. Gastric lap band tubing. Cholecystectomy clips. No evidence of acute pulmonary disease. Mild lumbar levocurvature. IMPRESSION: No evidence of acute abdominal or thoracic process.
[2017-01-09 23:57] VITALS: BP 128/59; TEMP 97.3
--- NOTE | 2017-01-10 00:18 | ED ---
General Adult HPI - General Chief complaint: Abdominal Pain Stated complaint: abd pain Source: patient Mode of arrival: wheelchair Limitations: no limitations - History of Present Illness Initial comments: 46-year-old female presented for evaluation of abdominal pain. She was admitted to this facility last week and discharged on Sunday for the exact same pain. She states during this admission she received an EGD, colonoscopy, and CT of her abdomen and pelvis which revealed no abnormalities. Leading up to this admission she had had abdominal pain and hematochezia. No etiology of the symptoms was found and she was discharged with instructions to follow with her primary care physician. She states that she went to the weekend and continued to have her pain which was uncontrollable. Although she has not had any more bleeding per rectum her pain has continued and is the primary cause for her return to the ED today. There is associated nausea and vomiting. - Related Data Home Medications Medication Instructions Recorded Confirmed Divalproex [Depakote] 250 mg PO Q12H 05/02/16 01/09/17 Levothyroxine Sodium [Synthroid] 50 mcg PO DAILY 05/02/16 01/09/17 Metoprolol Tartrate [Lopressor] 50 mg PO BID 05/02/16 01/09/17 Pramipexole [Mirapex] 2 mg PO HS 05/02/16 01/09/17 Torsemide 10 mg PO BID 05/02/16 01/09/17 traMADol HCl [Ultram] 50 mg PO DAILY PRN 08/05/16 01/09/17 Albuterol Sulfate [Proair 2 puff INHALATION RT-Q4H PRN 10/10/16 01/09/17 Respiclick] traZODone HCL [Desyrel] 150 mg PO HS 10/10/16 01/09/17 Albuterol Nebulized [Ventolin 2.5 mg INHALATION RT-Q6H PRN 12/30/16 01/09/17 Nebulized] Aspirin EC [Ecotrin Low Dose] 81 mg PO DAILY 12/30/16 01/09/17 Cyanocobalamin (Vitamin B-12) 3,000 mcg PO DAILY 12/30/16 01/09/17 [Vitamin B-12] FLUoxetine HCL [PROzac] 40 mg PO DAILY 12/30/16 01/09/17 Gabapentin [Neurontin] 1,200 mg PO TID 12/30/16 01/09/17 Solifenacin Succinate [Vesicare] 5 mg PO BID 12/30/16 01/09/17 Previous Rx's Medication Instructions Recorded LORazepam [Ativan] 0.5 mg PO TID PRN #15 tab 01/05/17 Omeprazole 20 mg PO DAILY #30 cap 01/05/17 Acetaminophen-Codeine 300-30mg 2 tab PO Q6H PRN #20 tablet 01/10/17 [Tylenol #3] Ibuprofen [Motrin] 800 mg PO Q8HR PRN #20 tab 01/10/17 Allergies Allergy/AdvReac Type Severity Reaction Status Date / Time Penicillins Allergy Swelling Verified 01/09/17 21:18 adhesive tape AdvReac Severe Peels Skin Verified 01/09/17 21:18 prochlorperazine AdvReac Agitation Verified 01/09/17 21:18 [From Compazine] prochlorperazine edisylate AdvReac Agitation Verified 01/09/17 21:18 [From Compazine] prochlorperazine maleate AdvReac Agitation Verified 01/09/17 21:18 [From Compazine] Review of Systems ROS Statement: Those systems with pertinent positive or pertinent negative responses have been documented in the HPI. ROS Other: All systems not noted in ROS Statement are negative. Constitutional: Denies: fever, chills, weakness, weight change Eyes: Denies: eye pain, eye discharge, vision change ENT: Denies: ear pain, throat pain, hearing loss, epistaxis Respiratory: Denies: cough, dyspnea, wheezes Cardiovascular: Denies: chest pain, palpitations, dyspnea on exertion, orthopnea Endocrine: Denies: fatigue, polydipsia, polyuria Gastrointestinal: Reports: abdominal pain, nausea, vomiting. Denies: diarrhea, constipation, hematemesis Genitourinary: Denies: urgency, dysuria Musculoskeletal: Denies: back pain, joint swelling Skin: Denies: rash, lesions Neurological: Denies: headache, weakness Psychiatric: Denies: anxiety, depression Hematological/Lymphatic: Denies: easy bleeding, easy bruising Past Medical History Past Medical History: Asthma, Chest Pain / Angina, Fibromyalgia, GERD/Reflux, Hypertension, Thyroid Disorder Additional Past Medical History / Comment(s): back pain, DDD, restless leg, migraines that "start in her neck" morbid obesity, pseudotumor cerebri, bladder incontinence, anemia, anxiety/depression, 2009-c-dff, pt states that she has ibs and her normal is loose and at times can be watery further stated that she goes between 1-10 times a day. History of Any Multi-Drug Resistant Organisms: C-DIFF Date of last positivie culture/infection: stool MDRO Source:: 2009 Past Surgical History: Appendectomy, Bariatric Surgery, Cholecystectomy, Hysterectomy, Tonsillectomy Additional Past Surgical History / Comment(s): LAP-BAND surgery in 2009 with loss of 60 pounds and gained 50 pounds back.recent stress echo Past Psychological History: Anxiety, Depression Additional Psychological History / Comment(s): pt lives in a home with her , son and 1 cat. has 4 steps up and 7 steps down. uses either a quad cane or walker when up. no outside services. pt is on disabilty. Smoking Status: Current some day smoker Past Alcohol Use History: Occasional Additional Past Alcohol Use History / Comment(s): .someday smoker a pack will last her 1-1.5 weeks She denies any medical marijuana, marijuana, street drug use. She states she drinks alcohol occ She is on disability due to pseudotumor cerebri and fibromyalgia. She states she uses a cane but also has a walker available. Past Drug Use History: None Reported - Past Family History Mother Additional Family Medical History / Comment(s): Mother is alive at age 66 with history of myocardial infarction 2, hypertension, hyperlipidemia, degenerative disc disease, Arlene's, anxiety and depression. Mother and maternal grandmother have history of TIA. Father Additional Family Medical History / Comment(s): Father is alive at age 69 with history of degenerative disc disease, fibromyalgia, hypertension, anxiety and depression. Brother(s) Additional Family Medical History / Comment(s): Patient has 4 brothers and one has fibromyalgia. Sister(s) Additional Family Medical History / Comment(s): Patient has 2 sisters with fibromyalgia. Patient does not have any children. General Exam Limitations: no limitations General appearance: alert, in distress Head exam: Present: atraumatic, normocephalic, normal inspection Eye exam: Present: normal appearance, PERRL, EOMI. Absent: scleral icterus, conjunctival injection, periorbital swelling ENT exam: Present: normal exam, mucous membranes moist Neck exam: Present: normal inspection. Absent: tenderness, meningismus, lymphadenopathy Respiratory exam: Present: normal lung sounds bilaterally. Absent: respiratory distress, wheezes, rales, rhonchi, stridor Cardiovascular Exam: Present: regular rate, normal rhythm, normal heart sounds. Absent: systolic murmur, diastolic murmur, rubs, gallop, clicks GI/Abdominal exam: Present: soft, tenderness, normal bowel sounds, other ( Morbid obesity). Absent: distended, guarding, rebound, rigid Rectal exam: Present: deferred Extremities exam: Present: normal inspection, full ROM, normal capillary refill. Absent: tenderness, pedal edema, joint swelling, calf tenderness Back exam: Present: normal inspection Neurological exam: Present: alert, oriented X3, CN II-XII intact Psychiatric exam: Present: normal affect, normal mood Skin exam: Present: warm, dry, intact, normal color, other (Bruising from previous IV attempts to bilateral upper extremities). Absent: rash Course Vital Signs 01/09/17 01/09/17 20:55 23:56 Temperature 97.8 F 97.3 F L Pulse Rate 68 68 Respiratory 18 18 Rate Blood Pressure 138/82 128/59 O2 Sat by Pulse 97 96 Oximetry EKG Findings - EKG Comments: EKG Findings:: Normal sinus rhythm with a ventricular rate of 69, JUDITH 134, QRS 94, QT/QTc 448/480. Medical Decision Making - Medical Decision Making 46-year-old female who is recently discharged from this facility on Sunday after receiving a negative CT abdomen and pelvis, EGD, and colonoscopy presented for evaluation of continued abdominal pain without rectal bleeding. On physical examination she does appear distressed and is holding her belly but she has a soft abdomen without peritoneal signs of guarding rebound or rigidity. She has multiple bruises to her upper extremities from previous IV attempts and she is morbidly obese. Otherwise her physical exam is negative for any acute or significant findings. Labs revealed no significant abnormalities and acute abdominal series with chest x-ray showed no acute process. Dr. Page and Dr. Hernandez were contacted separately and updated on her status and the consensus was reached that she should be discharged with instructions to follow-up with her primary care physician. The patient was informed of these results and explained the plan to follow with her primary care physician. She was further informed that she would be given pain control but that she should return to this facility if her symptoms should worsen or persist. The patient acknowledged an understanding of this information and agreed with this plan of care. - Lab Data Result diagrams: 01/09/17 22:41 01/09/17 22:41 Lab Results 01/09/17 01/09/17 01/09/17 Range/Units 22:15 22:41 22:41 WBC 8.6 (3.8-10.6) k/uL RBC 4.04 (3.80-5.40) m/uL Hgb 11.5 (11.4-16.0) gm/dL Hct 35.2 (34.0-46.0) % MCV 87.0 (80.0-100.0) fL MCH 28.3 (25.0-35.0) pg MCHC 32.6 (31.0-37.0) g/dL RDW 14.2 (11.5-15.5) % Plt Count 199 (150-450) k/uL Neutrophils % 68 % Lymphocytes % 21 % Monocytes % 6 % Eosinophils % 2 % Basophils % 1 % Neutrophils # 5.8 (1.3-7.7) k/uL Lymphocytes # 1.8 (1.0-4.8) k/uL Monocytes # 0.5 (0-1.0) k/uL Eosinophils # 0.2 (0-0.7) k/uL Basophils # 0.1 (0-0.2) k/uL D-Dimer (<0.60) mg/L FEU Sodium 141 (137-145) mmol/L Potassium 3.7 (3.5-5.1) mmol/L Chloride 100 (98-107) mmol/L Carbon Dioxide 31 H (22-30) mmol/L Anion Gap 10 mmol/L BUN 15 (7-17) mg/dL Creatinine 0.76 (0.52-1.04) mg/dL Est GFR (MDRD) Af Amer >60 (>60 ml/min/1.73 sqM) Est GFR (MDRD) Non-Af >60 (>60 ml/min/1.73 sqM) Glucose 96 (74-99) mg/dL Plasma Lactic Acid Brian (0.7-2.0) mmol/L Calcium 9.2 (8.4-10.2) mg/dL Total Bilirubin 0.9 (0.2-1.3) mg/dL AST 15 (14-36) U/L ALT 24 (9-52) U/L Alkaline Phosphatase 113 (38-126) U/L Troponin I (0.000-0.034) ng/mL NT-Pro-B Natriuret Pep pg/mL Total Protein 6.9 (6.3-8.2) g/dL Albumin 3.7 (3.5-5.0) g/dL Lipase 75 (23-300) U/L Urine Color Yellow Urine Appearance Cloudy H (Clear) Urine pH 7.5 (5.0-8.0) Ur Specific [place] 1.018 (1.001-1.035) Urine Protein Trace H (Negative) Urine Glucose (UA) Negative (Negative) Urine Ketones Negative (Negative) Urine Blood Negative (Negative) Urine Nitrite Negative (Negative) Urine Bilirubin 2+ H (Negative) Urine Urobilinogen 2.0 (<2.0) mg/dL Ur Leukocyte Esterase Trace H (Negative) Urine RBC 1 (0-5) /hpf Urine WBC 3 (0-5) /hpf Ur Squamous Epith Cells 2 (0-4) /hpf Amorphous Sediment Rare H (None) /hpf Urine Bacteria Rare H (None) /hpf Urine Mucus Rare H (None) /hpf 01/09/17 01/09/17 01/09/17 Range/Units 22:41 22:41 22:41 WBC (3.8-10.6) k/uL RBC (3.80-5.40) m/uL Hgb (11.4-16.0) gm/dL Hct (34.0-46.0) % MCV (80.0-100.0) fL MCH (25.0-35.0) pg MCHC (31.0-37.0) g/dL RDW (11.5-15.5) % Plt Count (150-450) k/uL Neutrophils % % Lymphocytes % % Monocytes % % Eosinophils % % Basophils % % Neutrophils # (1.3-7.7) k/uL Lymphocytes # (1.0-4.8) k/uL Monocytes # (0-1.0) k/uL Eosinophils # (0-0.7) k/uL Basophils # (0-0.2) k/uL D-Dimer 0.38 (<0.60) mg/L FEU Sodium (137-145) mmol/L Potassium (3.5-5.1) mmol/L Chloride (98-107) mmol/L Carbon Dioxide (22-30) mmol/L Anion Gap mmol/L BUN (7-17) mg/dL Creatinine (0.52-1.04) mg/dL Est GFR (MDRD) Af Amer (>60 ml/min/1.73 sqM) Est GFR (MDRD) Non-Af (>60 ml/min/1.73 sqM) Glucose (74-99) mg/dL Plasma Lactic Acid Brian 0.7 (0.7-2.0) mmol/L Calcium (8.4-10.2) mg/dL Total Bilirubin (0.2-1.3) mg/dL AST (14-36) U/L ALT (9-52) U/L Alkaline Phosphatase (38-126) U/L Troponin I (0.000-0.034) ng/mL NT-Pro-B Natriuret Pep 684 pg/mL Total Protein (6.3-8.2) g/dL Albumin (3.5-5.0) g/dL Lipase (23-300) U/L Urine Color Urine Appearance (Clear) Urine pH (5.0-8.0) Ur Specific [place] (1.001-1.035) Urine Protein (Negative) Urine Glucose (UA) (Negative) Urine Ketones (Negative) Urine Blood (Negative) Urine Nitrite (Negative) Urine Bilirubin (Negative) Urine Urobilinogen (<2.0) mg/dL Ur Leukocyte Esterase (Negative) Urine RBC (0-5) /hpf Urine WBC (0-5) /hpf Ur Squamous Epith Cells (0-4) /hpf Amorphous Sediment (None) /hpf Urine Bacteria (None) /hpf Urine Mucus (None) /hpf 01/09/17 Range/Units 22:41 WBC (3.8-10.6) k/uL RBC (3.80-5.40) m/uL Hgb (11.4-16.0) gm/dL Hct (34.0-46.0) % MCV (80.0-100.0) fL MCH (25.0-35.0) pg MCHC (31.0-37.0) g/dL RDW (11.5-15.5) % Plt Count (150-450) k/uL Neutrophils % % Lymphocytes % % Monocytes % % Eosinophils % % Basophils % % Neutrophils # (1.3-7.7) k/uL Lymphocytes # (1.0-4.8) k/uL Monocytes # (0-1.0) k/uL Eosinophils # (0-0.7) k/uL Basophils # (0-0.2) k/uL D-Dimer (<0.60) mg/L FEU Sodium (137-145) mmol/L Potassium (3.5-5.1) mmol/L Chloride (98-107) mmol/L Carbon Dioxide (22-30) mmol/L Anion Gap mmol/L BUN (7-17) mg/dL Creatinine (0.52-1.04) mg/dL Est GFR (MDRD) Af Amer (>60 ml/min/1.73 sqM) Est GFR (MDRD) Non-Af (>60 ml/min/1.73 sqM) Glucose (74-99) mg/dL Plasma Lactic Acid Brian (0.7-2.0) mmol/L Calcium (8.4-10.2) mg/dL Total Bilirubin (0.2-1.3) mg/dL AST (14-36) U/L ALT (9-52) U/L Alkaline Phosphatase (38-126) U/L Troponin I <0.012 (0.000-0.034) ng/mL NT-Pro-B Natriuret Pep pg/mL Total Protein (6.3-8.2) g/dL Albumin (3.5-5.0) g/dL Lipase (23-300) U/L Urine Color Urine Appearance (Clear) Urine pH (5.0-8.0) Ur Specific [place] (1.001-1.035) Urine Protein (Negative) Urine Glucose (UA) (Negative) Urine Ketones (Negative) Urine Blood (Negative) Urine Nitrite (Negative) Urine Bilirubin (Negative) Urine Urobilinogen (<2.0) mg/dL Ur Leukocyte Esterase (Negative) Urine RBC (0-5) /hpf Urine WBC (0-5) /hpf Ur Squamous Epith Cells (0-4) /hpf Amorphous Sediment (None) /hpf Urine Bacteria (None) /hpf Urine Mucus (None) /hpf Disposition Clinical Impression: Abdominal pain, Nausea and vomiting Disposition: HOME SELF-CARE Condition: Stable Instructions: Abdominal Pain (ED) Additional Instructions: Please use medication as discussed. Please follow up with family doctor if symptoms have not improved over the next two days. Please return to the emergency room if your symptoms increase or worsen or for any other concerns. Prescriptions: Acetaminophen-Codeine 300-30mg [Tylenol #3] 2 tab PO Q6H PRN #20 tablet PRN Reason: Pain Ibuprofen [Motrin] 800 mg PO Q8HR PRN #20 tab PRN Reason: Analgesia Referrals: Demi Suero MD [Primary Care Provider] - 1-2 days Iris Gerber MD [STAFF PHYSICIAN] - 1-2 days Time of Disposition: 00:17
== END 2017-01-10 00:35 | disposition home or self-care (01) ==
LOC: EC 20:30
DX: R10.9 Unspecified abdominal pain (principal); R11.2 Nausea with vomiting, unspecified; M79.7 Fibromyalgia; K21.9 Gastro-esophageal reflux disease without esophagitis; I10 Essential (primary) hypertension; E07.9 Disorder of thyroid, unspecified; F41.9 Anxiety disorder, unspecified; F32.9 Major depressive disorder, single episode, unspecified; E66.01 Morbid (severe) obesity due to excess calories; Z68.44 Body mass index [BMI] 60.0-69.9, adult; F17.200 Nicotine dependence, unspecified, uncomplicated; Z79.82 Long term (current) use of aspirin; Z79.899 Other long term (current) drug therapy; Z88.0 Allergy status to penicillin; Z91.048 Other nonmedicinal substance allergy status; Z88.8 Allergy status to other drugs, medicaments and biological substances; Z90.49 Acquired absence of other specified parts of digestive tract; Z90.710 Acquired absence of both cervix and uterus
CPT/HCPCS: 36415; 93005; 85379; 83880; 80053; 83605; 83690; 84484; 85025; 81001; 74022; 99284; 96374; 96375 ×2; 96361; J2270; J2405; J1885

== ENCOUNTER → 2017-01-17 | Outpatient (CLI) | payer MEDICARE ==
[2017-01-17 15:03] LABS: CH 27.1; HCT 38.1 % (34.0-46.0); HDW 2.38; Hypochromasia Slight; MCH 27.6 pg (25.0-35.0); MCHC 31.5 g/dL (31.0-37.0); MCV 87.7 fL (80.0-100.0); Mean Platelet Volume 8.5; RBC 4.34 m/uL (3.80-5.40); RDW 13.7 % (11.5-15.5); WBC 10.5 k/uL (3.8-10.6)
== END | disposition home or self-care (01) ==
LOC: LABWHC1 14:40
PROVIDERS: ATTEND Internal Medicine
DX: D64.9 Anemia, unspecified (principal)
CPT/HCPCS: 36415; 85027

== ENCOUNTER 2017-06-15 14:07 | Emergency (ER) | payer MEDICARE ==
[2017-06-15 14:26] VITALS: TEMP 98.6
[2017-06-15] MEDS ORDERED: HYDROmorphone 2 MG/ML 1 ML SYRINGE IM STA (15:14)
--- NOTE | 2017-06-15 15:34 | ED ---
General Adult HPI - General Chief complaint: Back Pain/Injury Stated complaint: Back Pain Time Seen by Provider: 06/15/17 14:39 Source: patient, RN notes reviewed, old records reviewed Mode of arrival: wheelchair Limitations: no limitations - History of Present Illness Initial comments: This is a 47-year-old female SHERRY for evaluation. Patient presents here today for evaluation regarding chronic pain. Patient states she has chronic pain syndrome complicated by fibromyalgia. At this time her pain medication is not working she states when this happens she does come the emergency room for evaluation patient here initially for pain control today. No other injuries no other concerns - Related Data Home Medications Medication Instructions Recorded Confirmed Divalproex [Depakote] 250 mg PO Q12H 05/02/16 06/15/17 Pramipexole [Mirapex] 2 mg PO HS 05/02/16 06/15/17 Torsemide 10 mg PO BID 05/02/16 06/15/17 Aspirin EC [Ecotrin Low Dose] 81 mg PO DAILY 12/30/16 06/15/17 Cyanocobalamin (Vitamin B-12) 3,000 mcg PO DAILY 12/30/16 06/15/17 [Vitamin B-12] FLUoxetine HCL [PROzac] 40 mg PO DAILY 12/30/16 06/15/17 Gabapentin [Neurontin] 600 mg PO TID 12/30/16 06/15/17 Albuterol Sulfate [Proair Hfa] 1 - 2 puff INHALATION RT-Q6H PRN 06/15/17 Amitriptyline HCl [Elavil] 50 mg PO HS 06/15/17 06/15/17 Calcium Gummies 500mg 500 mg PO DAILY 06/15/17 06/15/17 Cholecalciferol (Vitamin D3) 2,000 unit PO DAILY 06/15/17 06/15/17 [Vitamin D3] Etodolac [Lodine XR] 400 mg PO BID 06/15/17 06/15/17 LORazepam [Ativan] 1 mg PO BID 06/15/17 06/15/17 Multivitamin [Multivitamins Adult 1 tab PO DAILY 06/15/17 06/15/17 Gummies] Omeprazole 20 mg PO BID 06/15/17 06/15/17 Propranolol HCl 80 mg PO DAILY 06/15/17 06/15/17 Allergies Allergy/AdvReac Type Severity Reaction Status Date / Time Penicillins Allergy Swelling Verified 06/15/17 15:01 adhesive tape AdvReac Severe Peels Skin Verified 06/15/17 15:01 prochlorperazine AdvReac Agitation Verified 06/15/17 15:01 [From Compazine] prochlorperazine edisylate AdvReac Agitation Verified 06/15/17 15:01 [From Compazine] prochlorperazine maleate AdvReac Agitation Verified 06/15/17 15:01 [From Compazine] Review of Systems ROS Statement: Those systems with pertinent positive or pertinent negative responses have been documented in the HPI. ROS Other: All systems not noted in ROS Statement are negative. Past Medical History Past Medical History: Asthma, Chest Pain / Angina, Fibromyalgia, GERD/Reflux, Hypertension, Thyroid Disorder Additional Past Medical History / Comment(s): back pain, DDD, restless leg, migraines that "start in her neck" morbid obesity, pseudotumor cerebri, bladder incontinence, anemia, anxiety/depression, History of Any Multi-Drug Resistant Organisms: C-DIFF Date of last positivie culture/infection: stool MDRO Source:: 2009 Past Surgical History: Appendectomy, Bariatric Surgery, Cholecystectomy, Hysterectomy, Tonsillectomy Additional Past Surgical History / Comment(s): LAP-BAND surgery in 2009 with loss of 60 pounds and gained 50 pounds back.recent stress echo Past Psychological History: Anxiety, Depression Smoking Status: Former smoker Past Alcohol Use History: Occasional Past Drug Use History: None Reported - Past Family History Mother Additional Family Medical History / Comment(s): Mother is alive at age 66 with history of myocardial infarction 2, hypertension, hyperlipidemia, degenerative disc disease, Arlene's, anxiety and depression. Mother and maternal grandmother have history of TIA. Father Additional Family Medical History / Comment(s): Father is alive at age 69 with history of degenerative disc disease, fibromyalgia, hypertension, anxiety and depression. Brother(s) Additional Family Medical History / Comment(s): Patient has 4 brothers and one has fibromyalgia. Sister(s) Additional Family Medical History / Comment(s): Patient has 2 sisters with fibromyalgia. Patient does not have any children. General Exam Limitations: no limitations General appearance: alert, in no apparent distress Head exam: Present: atraumatic, normocephalic, normal inspection Eye exam: Present: normal appearance, PERRL, EOMI. Absent: scleral icterus, conjunctival injection, periorbital swelling ENT exam: Present: normal exam, mucous membranes moist Neck exam: Present: normal inspection. Absent: tenderness, meningismus, lymphadenopathy Respiratory exam: Present: normal lung sounds bilaterally. Absent: respiratory distress, wheezes, rales, rhonchi, stridor Cardiovascular Exam: Present: regular rate, normal rhythm, normal heart sounds. Absent: systolic murmur, diastolic murmur, rubs, gallop, clicks GI/Abdominal exam: Present: soft, normal bowel sounds. Absent: distended, tenderness, guarding, rebound, rigid Extremities exam: Present: normal inspection, full ROM, normal capillary refill. Absent: tenderness, pedal edema, joint swelling, calf tenderness Back exam: Present: normal inspection Neurological exam: Present: alert, oriented X3, CN II-XII intact Psychiatric exam: Present: normal affect, normal mood Skin exam: Present: warm, dry, intact, normal color. Absent: rash Course Vital Signs 06/15/17 14:22 Temperature 98.6 F Pulse Rate 72 Respiratory 18 Rate Blood Pressure 143/87 O2 Sat by Pulse 99 Oximetry - Reevaluation(s) Reevaluation #1: 06/15/17 15:37 Good pain control at this time Medical Decision Making - Medical Decision Making 47-year-old female here chronic pain, at this time as pain control. Patient given pain shot we'll discharge home with a few days of pain medication Disposition Clinical Impression: Exacerbation of chronic back pain, Morbid obesity with BMI of 60.0-69.9, adult Disposition: HOME SELF-CARE Condition: Good Instructions: Chronic Back Pain (ED), Acute Low Back Pain (ED) Referrals: César Marquez MD [Primary Care Provider] - 1-2 days
[2017-06-15 16:07] VITALS: BP 138/74; PULSE 66; RESP 16
== END 2017-06-15 16:07 | disposition home or self-care (01) ==
LOC: EC 14:07
DX: G89.4 Chronic pain syndrome (principal); M54.9 Dorsalgia, unspecified; E66.01 Morbid (severe) obesity due to excess calories; I10 Essential (primary) hypertension; M79.7 Fibromyalgia; K21.9 Gastro-esophageal reflux disease without esophagitis; G25.81 Restless legs syndrome; F32.9 Major depressive disorder, single episode, unspecified; F41.9 Anxiety disorder, unspecified; Z87.891 Personal history of nicotine dependence; Z79.1 Long term (current) use of non-steroidal anti-inflammatories (NSAID); Z79.82 Long term (current) use of aspirin; Z79.899 Other long term (current) drug therapy; Z88.0 Allergy status to penicillin; Z88.8 Allergy status to other drugs, medicaments and biological substances; Z91.09 Other allergy status, other than to drugs and biological substances; Z86.69 Personal history of other diseases of the nervous system and sense organs; Z86.79 Personal history of other diseases of the circulatory system; Z82.69 Family history of other diseases of the musculoskeletal system and connective tissue; Z68.44 Body mass index [BMI] 60.0-69.9, adult
CPT/HCPCS: 99283; 96372; J1170

== ENCOUNTER 2017-07-14 05:52 | Emergency (ER) | payer MEDICARE ==
[2017-07-14 05:58] VITALS: TEMP 97.7
[2017-07-14] MEDS ORDERED: KETOROLAC 60 MG/2 ML VIAL IM STA (06:10)
[2017-07-14] MEDS ORDERED: ORPHENADRINE 30 MG/ML 2 ML VIAL IM STA (06:10)
--- NOTE | 2017-07-14 06:56 | ED ---
Lower Extremity Injury HPI - General Chief Complaint: Extremity Injury, Lower Stated Complaint: Hip pain Hx Fibromyalgia Time Seen by Provider: 07/14/17 06:03 Source: patient, family Mode of arrival: wheelchair Limitations: no limitations - History of Present Illness Initial Comments: This patient is a 47-year-old woman with history of fibromyalgia, who states that she stumbled and following that has had pain to the lateral aspect of the left hip. Patient states that she did not fully fall. She states pain is been getting worse over the past 10 hours. She feels it has exacerbated her fibromyalgia pain and she hurts all over. The patient denies any weakness or numbness of the left leg. There is no component of back pain. There is been no change in bladder or bowel function. No abdominal pain. MD Complaint: hip injury Onset/Timin -: hour(s) Injury: Hip: Left Type of Injury: unknown Place: home Severity: severe Improves With: nothing Worsens With: movement Context: other (Stumbled) Associated Symptoms: able to partially bear weight - Related Data Home Medications Medication Instructions Recorded Confirmed Divalproex [Depakote] 250 mg PO Q12H 05/02/16 07/14/17 Pramipexole [Mirapex] 2 mg PO HS 05/02/16 07/14/17 Torsemide 10 mg PO BID 05/02/16 07/14/17 Aspirin EC [Ecotrin Low Dose] 81 mg PO DAILY 12/30/16 07/14/17 Cyanocobalamin (Vitamin B-12) 3,000 mcg PO DAILY 12/30/16 07/14/17 [Vitamin B-12] FLUoxetine HCL [PROzac] 40 mg PO DAILY 12/30/16 07/14/17 Gabapentin [Neurontin] 600 mg PO TID 12/30/16 07/14/17 Albuterol Sulfate [Proair Hfa] 1 - 2 puff INHALATION RT-Q6H PRN 06/15/17 Amitriptyline HCl [Elavil] 50 mg PO HS 06/15/17 07/14/17 Calcium Gummies 500mg 500 mg PO DAILY 06/15/17 07/14/17 Cholecalciferol (Vitamin D3) 2,000 unit PO DAILY 06/15/17 07/14/17 [Vitamin D3] Etodolac [Lodine XR] 400 mg PO BID 06/15/17 07/14/17 LORazepam [Ativan] 1 mg PO BID 06/15/17 07/14/17 Multivitamin [Multivitamins Adult 1 tab PO DAILY 06/15/17 07/14/17 Gummies] Omeprazole 20 mg PO BID 06/15/17 07/14/17 Propranolol HCl 80 mg PO DAILY 06/15/17 07/14/17 Previous Rx's Medication Instructions Recorded HYDROcodone/APAP 5-325MG [[place] 1 tab PO Q6HR PRN #20 tab 06/15/17 5-325] Allergies Allergy/AdvReac Type Severity Reaction Status Date / Time Penicillins Allergy Swelling Verified 07/14/17 05:58 adhesive tape AdvReac Severe Peels Skin Verified 07/14/17 05:58 prochlorperazine AdvReac Agitation Verified 07/14/17 05:58 [From Compazine] prochlorperazine edisylate AdvReac Agitation Verified 07/14/17 05:58 [From Compazine] prochlorperazine maleate AdvReac Agitation Verified 07/14/17 05:58 [From Compazine] Review of Systems ROS Statement: Those systems with pertinent positive or pertinent negative responses have been documented in the HPI. ROS Other: All systems not noted in ROS Statement are negative. Constitutional: Denies: fever, chills, weakness Gastrointestinal: Denies: abdominal pain, diarrhea, constipation Genitourinary: Denies: dysuria, hematuria Musculoskeletal: Reports: arthralgia (Left hip). Denies: back pain Skin: Denies: rash, lesions Neurological: Denies: weakness, numbness, paresthesias Past Medical History Past Medical History: Asthma, Chest Pain / Angina, Fibromyalgia, GERD/Reflux, Hypertension, Thyroid Disorder Additional Past Medical History / Comment(s): back pain, DDD, restless leg, migraines that "start in her neck" morbid obesity, pseudotumor cerebri, bladder incontinence, anemia, anxiety/depression, History of Any Multi-Drug Resistant Organisms: C-DIFF Date of last positivie culture/infection: stool MDRO Source:: 2009 Past Surgical History: Appendectomy, Bariatric Surgery, Cholecystectomy, Hysterectomy, Tonsillectomy Additional Past Surgical History / Comment(s): LAP-BAND surgery in 2008 with loss of 60 pounds and gained 50 pounds back.recent stress echo Past Psychological History: Anxiety, Depression Smoking Status: Former smoker Past Alcohol Use History: Occasional Past Drug Use History: None Reported - Past Family History Mother Additional Family Medical History / Comment(s): Mother is alive at age 66 with history of myocardial infarction 2, hypertension, hyperlipidemia, degenerative disc disease, Arlene's, anxiety and depression. Mother and maternal grandmother have history of TIA. Father Additional Family Medical History / Comment(s): Father is alive at age 69 with history of degenerative disc disease, fibromyalgia, hypertension, anxiety and depression. Brother(s) Additional Family Medical History / Comment(s): Patient has 4 brothers and one has fibromyalgia. Sister(s) Additional Family Medical History / Comment(s): Patient has 2 sisters with fibromyalgia. Patient does not have any children. General Exam Limitations: no limitations General appearance: alert, in no apparent distress, obese GI/Abdominal exam: Present: soft. Absent: tenderness, guarding, rebound Back exam: Absent: CVA tenderness (R), CVA tenderness (L), paraspinal tenderness , vertebral tenderness Neurological exam: Present: alert, normal gait. Absent: motor sensory deficit Skin exam: Present: warm, dry, intact, normal color. Absent: rash Course Vital Signs 07/14/17 07/14/17 05:53 07:52 Temperature 97.7 F 97.7 F Pulse Rate 85 63 Respiratory 18 20 Rate Blood Pressure 144/75 150/80 O2 Sat by Pulse 97 95 Oximetry Medical Decision Making - Medical Decision Making Patient signed out to Dr. Fischer pending the computed tomography scan results. Disposition Clinical Impression: Hip pain, left Disposition: HOME SELF-CARE Condition: Fair Referrals: César Marquez MD [Primary Care Provider] - 1-2 days
[2017-07-14] MEDS ORDERED: HYDROcodone/APAP 5-325MG 1 EACH TAB PO STA (07:02)
--- NOTE | 2017-07-14 07:27 | XR ---
PROCEDURE: FILM LEFT HIP HISTORY: 47-year-old female with left hip pain. COMPARISON: None TECHNIQUE: Frontal and frog-leg lateral views of the left hip were obtained. FINDINGS: Limited by body habitus. Bony structures are intact. Joint spaces are preserved. Mild degenerative changes at the pubic symphysis with subchondral sclerosis. Soft tissues are within normal limits. IMPRESSION: No evidence of acute fracture or subluxation. Mild degenerative changes of the pubic symphysis.
[2017-07-14 08:07] VITALS: BP 150/80; PULSE 63; RESP 20
--- NOTE | 2017-07-16 05:55 | CDI ---
Documentation Clarification OP Dear Scotty Duarte Please do addendum to ED report for missing Clinical impression. Thank you, Josh Hyatt [employer] Set Up Operator If you have any questions, please contact Line Ordering Clinician at [phone] [facility]
== END 2017-07-14 08:06 | disposition home or self-care (01) ==
LOC: EC 05:52
DX: M25.552 Pain in left hip (principal); K21.9 Gastro-esophageal reflux disease without esophagitis; I10 Essential (primary) hypertension; M79.7 Fibromyalgia; G25.81 Restless legs syndrome; F41.9 Anxiety disorder, unspecified; F32.9 Major depressive disorder, single episode, unspecified; E66.01 Morbid (severe) obesity due to excess calories; Z68.44 Body mass index [BMI] 60.0-69.9, adult; Z98.84 Bariatric surgery status; Z87.891 Personal history of nicotine dependence; Z79.82 Long term (current) use of aspirin; Z79.899 Other long term (current) drug therapy; Z88.0 Allergy status to penicillin; Z91.048 Other nonmedicinal substance allergy status; Z88.8 Allergy status to other drugs, medicaments and biological substances
CPT/HCPCS: 99283; 96372 ×2; 73502; J2360; J1885